=== PATIENT | male | born 1950 | race Caucasian/White ===

== ENCOUNTER 2018-02-22 16:47 | Observation (INO) ==
[2018-02-22] MEDS ORDERED: Naloxone 0.4 MG/ML INJ IVP PRN (18:10)
[2018-02-22 19:07] LABS: INR 2.7
[2018-02-22] MEDS: Acetaminophen 325 MG TABLET PO PRN (22:19)
[2018-02-23] MEDS ORDERED: *HR* Phytonadione 10 MG/ML AMPUL SQ ONE ×2 (07:50→18:29)
[2018-02-23] MEDS ORDERED: TRAZODONE HCL 150 MG PO SCH (11:15)
[2018-02-23] MEDS ORDERED: [UNRECOGNIZED DRUG - OTHER] PO SCH (11:15)
[2018-02-23] MEDS ORDERED: CHLORTHALIDONE PO SCH (11:15)
[2018-02-23] MEDS ORDERED: ATENOLOL PO SCH (11:15)
--- NOTE | 2018-02-23 11:28 | General Surg History&Physical ---
Date of Encounter: 02/23/18 Time of Encounter: 11:24 Assessment and Plan (1) Contusion of left lower extremity Current Visit: Yes Status: Acute 68M with anticoagulation now with LLE wound and hematoma; diet as tolerated reverse anticoagulation (vit K, FFP) activity as tolerated will plan for OR for debridement once INR is appropriate The assessment and plan as outlined above was discussed with the patient and/or family members who expressed understanding and agreement. All questions were answered. Qualifiers: Encounter type: initial encounter Qualified Code(s): S80.12XA - Contusion of left lower leg, initial encounter (2) Hematoma Current Visit: No Status: Acute see above will plan for US of LLE The assessment and plan as outlined above was discussed with the patient and/or family members who expressed understanding and agreement. All questions were answered. History of Present Illness Chief complaint: LLE wound HPI: Mr. Romero is a 68 year old male h/o valve replacement on coumadin who is s/p traumatic injury from encounter with a dog with subsequent injury to his LLE; The wound is tender to palpation and likely with underlying hematoma. He was evaluated in wound clinic and admitted for further evaluation; Past Med Surg Social Fam HX - Past Medical History Medical history: arthritis, hyperlipidemia, hypertension, valvular heart disease Additional medical history: arthritis in bilateral knees, enlarged prostate Psychiatric history: anxiety, depression - Past Surgical History Surgical History: other Additional surgical history: Mechanical mitral valve, total shoulder reversal - Social History Smoking Status: Former smoker Smokeless Tobacco Status: No Alcohol use: none Drug use: none - Family History Mother Adopted: No Living Status: Hx Family Cardiac Disorders: No Hx Family Respiratory Disorders: No Hx Family Cancer: Yes (colon) Hx Family GI Disorders: No Hx Family Endocrine Disorder: No Hx Family Neuromuscular Disorders: No Hx Family Neurologic Disorders: No Hx Family HEENT Disorders: No Hx Family Autoimmune Disorders: No Father Adopted: No Living Status: Hx Family Cardiac Disorders: No Hx Family Respiratory Disorders: Yes Hx Family Cancer: No Hx Family GI Disorders: No Hx Family Endocrine Disorder: No Hx Family Neuromuscular Disorders: No Hx Family Neurologic Disorders: No Hx Family HEENT Disorders: No Hx Family Autoimmune Disorders: No Medications and Allergies Atorvastatin [Lipitor] 40 mg PO HS 02/22/18 [History] Buspirone HCl [Buspar] 60 mg PO DAILY 02/22/18 [History] Escitalopram [Lexapro] 20 mg PO DAILY 02/22/18 [History] Omeprazole [PriLOSEC] 40 mg PO DAILY 02/22/18 [History] Trazodone HCl 150 mg PO DAILY 02/22/18 [History] Warfarin [Coumadin] 5 mg PO SUMOTUTHFRSA 02/22/18 [History] Atenolol/Chlorthalidone [Tenoretic 50 Tablet] 1 tab PO DAILY 02/23/18 [History] Oxybutynin [Ditropan] 5 mg PO BID 02/23/18 [History] Warfarin [Coumadin] 7.5 mg PO WE 02/23/18 [History] 3 Allergy/AdvReac Type Severity Reaction Status Date / Time venom-honey bee Allergy Difficulty Verified 06/08/17 13:20 [bee venom (honey bee)] Breathing Review of Systems All systems PM: The remainder of the systems were reviewed and are negative General Surgery Exam Initial Vital Signs Temp Pulse Resp BP Pulse Ox 97.7 F 65 16 152/84 96 02/22/18 19:34 02/22/18 19:34 02/22/18 19:34 02/22/18 19:34 02/22/18 19:34 - General physical appearance no distress - Eyes normal ocular movement - ENT normocephalic - Neck no lymphadectomy - Respiratory normal expansion, normal respiratory effort - Cardiovascular Cardiovascular exam: Present: RRR - Abdomen Abdomen general surgery: Present: soft, non tender - Integumentary Integumentary general surgery: Present: other (small wound ~ 4cm in size with likely hematoma below the skin; TTP; no purulent drainage) - Neurologic Present: CN 2-12 grossly intact - Musculoskeletal Present: normal gait, normal posture - Psychiatric Psychiatric general surgery: Present: A&Ox3 Results - Labs Abnormal lab results PT 30.0 Seconds (9.4-12.1) H 02/22/18 18:30 All other labs normal.
[2018-02-23] MEDS: Acetaminophen 325 MG TABLET PO PRN (13:13)
[2018-02-23] MEDS ORDERED: 0.9 % Sodium Chloride 250 ML ONE (13:43)
[2018-02-23 18:06] LABS: INR 1.7; Prothrombin Time 19.7 Seconds (9.4-12.1)
[2018-02-23] MEDS ORDERED: *HR* Heparin 5,000 UNIT/ML VIAL IVP PRN ×2 (18:32)
[2018-02-23] MEDS ORDERED: Heparin 25,000 UNIT/500 ML D5W 25,000 UNIT/500 ML BAG IVC SCH (18:45)
[2018-02-23] MEDS ORDERED: traZODone 50 MG TABLET PO SCH (21:00)
[2018-02-23] MEDS: 0.9 % Sodium Chloride 1,000 ML IVC SCH (23:39)
--- NOTE | 2018-02-24 08:11 | Anesthesia Evaluation PreOp ---
Date of Encounter: 02/24/18 Time of Encounter: 08:15 - Past History Planned Operation: Incision Drainage LLE Cardiac History: HTN, Hyperlipidemia, Cardiac Surgery (Valve Replacement) Pulmonary History: Denies Any Significant HX SODIUM METHYLATE OPERATOR History: Denies Any Significant HX Other Medical History: Denies Any Significant HX Anesthesia History: No Prior Anesthetic Complications, Past Anesthesia ( Shoulder Surgery) Alcohol Use: none Drug use: none Medications and Allergies Atorvastatin [Lipitor] 40 mg PO HS 02/22/18 [History] Buspirone HCl [Buspar] 60 mg PO DAILY 02/22/18 [History] Escitalopram [Lexapro] 20 mg PO DAILY 02/22/18 [History] Omeprazole [PriLOSEC] 40 mg PO DAILY 02/22/18 [History] Trazodone HCl 150 mg PO DAILY 02/22/18 [History] Warfarin [Coumadin] 5 mg PO SUMOTUTHFRSA 02/22/18 [History] Atenolol/Chlorthalidone [Tenoretic 50 Tablet] 1 tab PO DAILY 02/23/18 [History] Oxybutynin [Ditropan] 5 mg PO BID 02/23/18 [History] Warfarin [Coumadin] 7.5 mg PO WE 02/23/18 [History] 3 Allergy/AdvReac Type Severity Reaction Status Date / Time Hydromorphone [From Dilaudid] Allergy Hallucinati Verified 02/23/18 23:30 ng venom-honey bee Allergy Difficulty Verified 06/08/17 13:20 [bee venom (honey bee)] Breathing - Meds/Allergy Pre-op Review Medications Reviewed: Yes Allergies Reviewed: Yes Beta Blockers on Current Med List: Yes (Atenolol 8-5 am) Anesthesia Results - Labs Laboratory Tests 06/08/17 02/19/18 02/23/18 13:28 18:08 17:47 Hgb 13.1 Hct 37.9 Plt Count 154 PT 19.7 H INR 1.7 Sodium 141 Potassium 3.3 L BUN 24 Creatinine 0.91 - Imaging EKG: report reviewed (AFib) Anesthesia Exam Vital Signs/O2 Sat/Glucose, Most Current Temp Pulse Resp BP Pulse Ox 02/24/18 06:36 97.8 F 74 15 115/72 97 Height: 5'11 Weight: 216 lbs NPO (# of Hours): MN Pain Scale: 0 - HEENT Pupil (Motor): Pupils equal, EOMI Oral Opening: Greater than 3 - SODIUM METHYLATE OPERATOR LOC: Oriented SODIUM METHYLATE OPERATOR Motor: Normal RUE, Normal LUE, Normal RLE, Normal LLE, Normal Face SODIUM METHYLATE OPERATOR Sensory: Normal: RUE, LUE, RLE, LLE, Face - Cardiac Rhythm: Regular Murmur: None JVD: No Carotid Bruit: No - Pulmonary Breath Sounds: bilateral Clear Respiratory Effort: Symmetrical Anesthesia Assess/Plan ASA Score: 3 (HTN Open Heart Surgery) Modified [place] Scale for Level of Consciousness: Cooperative, oriented, and tranquil Anesthetic Plan: General Monitoring Plan: Standard Monitors Recovery Plan: PACU (Discussed GA, agrees to proceed)
[2018-02-24] MEDS ORDERED: Lidocaine -MPF 2% 2 ML VIAL ONE (08:31)
[2018-02-24] MEDS ORDERED: *HR* FentaNYL (PF) 100 MCG/2 ML VIAL ONE (08:31)
[2018-02-24] MEDS ORDERED: *HR* Midazolam HCl 2 MG/2 ML VIAL ONE (08:31)
[2018-02-24] MEDS ORDERED: *HR* Propofol 200 MG/20 ML VIAL IVP ONE (08:31)
[2018-02-24] MEDS ORDERED: Dexamethasone 4 MG/ML VIAL ONE (08:36)
[2018-02-24] MEDS ORDERED: Ondansetron 4 MG/2 ML VIAL ONE (08:36)
[2018-02-24] MEDS ORDERED: Acetaminophen IV 1,000 MG/100 ML INFUS..BTL ONE (09:00)
[2018-02-24] MEDS ORDERED: Famotidine 20 MG/2 ML VIAL ONE (09:00)
[2018-02-24] MEDS ORDERED: KETAMINE HCL 50 MG/ML SYRINGE IV ONE (09:06)
[2018-02-24] MEDS ORDERED: Clindamycin 600 MG/50 ML 600 MG/50 ML IV.SOLN IVPB ONE (09:24)
[2018-02-24] MEDS ORDERED: Vancomycin 1,000 MG VIAL ONE (09:29)
[2018-02-24] MEDS ORDERED: *HR* Promethazine 25 MG/ML VIAL IVP PRN (09:42)
[2018-02-24] MEDS ORDERED: *HR* OxyCODONE Immed Rel 5 MG TABLET PO PRN (09:42)
--- NOTE | 2018-02-24 10:18 | Anesthesia Evaluation Post Op ---
Date of Encounter: 02/24/18 Time of Encounter: 10:20 - Vital Signs Vital Signs: Vital Signs/O2 Sat/Glucose, Most Current Temp Pulse Resp BP Pulse Ox 02/24/18 10:10 55 14 134/60 98 02/24/18 10:00 97 F L 64 12 138/85 91 02/24/18 06:36 97.8 F 74 15 115/72 97 - Lungs Lungs: Clear Ascult./Percussion - Airway Airway: Non-obstructed - Cardiovascular Regular Rate - Mental Status Mental Status: Alert & Oriented, Answers Appropriately - Pain Pain Scale: 0 - Nausea Vomiting Nausea Vomiting: Not Present - Hydration Hydration: Ice chips - Discharge PostOp Status: Transfer Patient to floor
[2018-02-24] MEDS: 0.9 % Sodium Chloride 1,000 ML IVC SCH (11:09)
[2018-02-24] MEDS ORDERED: 0.9 % Sodium Chloride 1,000 ML IVC SCH (12:54)
[2018-02-24] MEDS ORDERED: Acetaminophen 325 MG TABLET PO PRN (12:54)
[2018-02-24] MEDS ORDERED: *HR* Heparin 5,000 UNIT/ML VIAL IVP PRN ×2 (12:54)
[2018-02-24] MEDS ORDERED: Naloxone 0.4 MG/ML INJ IVP PRN (12:54)
[2018-02-24] MEDS: Heparin 25,000 UNIT/500 ML D5W 25,000 UNIT/500 ML BAG IVC SCH (13:55)
[2018-02-24] MEDS: *HR* Warfarin 5 MG TABLET PO SCH (18:09)
[2018-02-24] MEDS: traZODone 50 MG TABLET PO SCH (21:33)
[2018-02-25 05:09] LABS: INR 1.2; Prothrombin Time 13.3 Seconds (9.4-12.1)
[2018-02-25 05:11] LABS: Heparin anti-factor XA UFH 1.13 IU/mL (0.30-0.70)
--- NOTE | 2018-02-25 08:53 | General Surgery Progress Note ---
<TobiOpal Hare - Last Filed: 02/25/18 10:46> Date of Encounter: 02/25/18 Time of Encounter: 08:53 - Assessment and Plan (1) Hematoma Current Visit: Yes Status: Acute Date of procedure: 02/24/18 Pre-op diagnosis: left lower extremity wound Post-op diagnosis: same Procedure: exicisional debridement of left lower extremity wound Implants: none Complications: none Anesthesia: GETA Local Anesthetics: 0.5% Sensorcaine HCL SubQ (cc) Surgeon: Davis Dawson POD#1 as above after Pt suffered trauma when tripping over his dog. He is doing well postoperatively. He reports his discomfort is not controlled. Left lower extremity is with a postoperative wound measuring 8 cm(L) x 8cm (W), by 4 cm (D ) and with undermining 7 to 10 o'clock position. The margins are free from evidence of cellulitis. The wound beds are beefy red. There is surrounding ecchymosis. Drainage is bloody. A wound VAC is applied using white foam in the undermining and black foam in the wound bed. There is an area of abrasion at the 2-4 o'clock position and a non adherent dressing was placed prior to the placement of the [place] draping. Suction was placed at 125 mmHgb and there was no leak present. Plan: Wound vac therapy Q m/w/f: White foam to undermining. Black foam in the wound bed. Nonadherent dressing to the abrasion area (2-4 o'clock position) Continue suction to 125 mmHgb. [facility] for wound vac changes to begin on 02/27/2018. 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 Objective Vital Signs - Last 8 Hours Temp Pulse Resp BP Pulse Ox 02/25/18 07:04 98.3 F 76 14 124/74 94 02/25/18 04:39 97.9 F 74 14 98/78 93 Intake and Output 02/24/18 02/25/18 02/25/18 23:59 07:59 15:59 Intake Total 1453 / 1453 420 / 420 Output Total 400 / 400 650 / 650 100 / 100 Balance 1053 / 1053 -230 / -230 -100 / -100 Intake: IV Fluids 1213 / 1213 220 / 220 0.9 % Sodium Chloride 1,000 ML 1000 / 1000 @ 125 mls/hr IVC .Q8H ANNA Rx#: [id number] Heparin 25,000 UNIT/500 ML D5W 213 / 213 220 / 220 25,000 unit In 500 ml @ 14 UNIT /KG/HR 27.433 mls/hr IVC . [id number] ANNA Rx#:[id number] Oral 240 / 240 200 / 200 Output: Urine 400 / 400 650 / 650 100 / 100 Other: Meal Dinner Percent of Meal Consumed 85% # Bowel Movements 0 Weight 98.4 kg Patient Weight 02/25/18 23:59 Weight 98.4 kg VITAL SIGNS: Reviewed. See [facility] GENERAL: In no apparent distress. HEENT: Normocephalic, atraumatic, pupils are equal and reactive, extraocular motions intact, oropharynx is pink and moist, there is no neck adenopathy or JVD noted. CHEST/RESPIRATORY: The thorax is free from signs of trauma. Lung sounds: clear to auscultation, normal respiratory effort CARDIAC: Regular rate and rhythm. Mechanical heart sounds VASCULAR: No Edema. 2+ peripheral pulses. Left lower extremity is with a postoperative wound measuring 8 cm(L) x 8cm (W), by 4 cm (D) and with undermining 7 to 10 o'clock position. The margins are free from evidence of cellulitis. The wound beds are beefy red. There is surrounding ecchymosis. Drainage is bloody. A wound VAC is applied using white foam in the undermining and black foam in the wound bed. There is an area of abrasion at the 2-4 o' clock position and a non adherent dressing was placed prior to the placement of the WV draping. Suction was placed at 125 mmHgb and there was no leak present. ABDOMEN: soft, nontender, active bowel sounds MUSCULOSKELETAL: Good range of motion of all major joints. Extremities without clubbing, cyanosis or edema. NEUROLOGIC EXAM: Alert and oriented x 3. Speech normal. Follows commands. PSYCHIATRIC: Mood normal. SKIN: No rash or lesions except ecchymosis as described. - VTE Documentation of Mechanical Device: Graduated compression elastic hosiery Consult Discharge Plan - Plan Referrals: Kel Garcia MD [Primary Care Provider] - Prescriptions: Enoxaparin [Lovenox] 100 mg SQ Q12HR 30 Days #60 syr <Davis Dawson - Last Filed: 02/26/18 08:06> Date of Encounter: 02/26/18 - Assessment and Plan (1) Contusion of left lower extremity Current Visit: Yes Status: Acute Qualifiers: Encounter type: initial encounter Qualified Code(s): S80.12XA - Contusion of left lower leg, initial encounter (2) Hematoma Current Visit: Yes Status: Acute Objective Vital Signs - Last 8 Hours Temp Pulse Resp BP Pulse Ox 02/26/18 07:07 98.4 F 68 17 113/74 93 02/26/18 04:11 97.9 F 70 16 134/75 94 Intake and Output 02/25/18 02/26/18 02/26/18 23:59 07:59 15:59 Intake Total 1303 / 1303 200 / 200 Output Total 475 / 475 1225 / 1225 Balance 828 / 828 -1025 / -1025 Intake: IV Fluids 1063 / 1063 Heparin 25,000 UNIT/500 ML D5W 63 / 63 25,000 unit In 500 ml @ 14 UNIT /KG/HR 27.433 mls/hr IVC . [id number] ANNA Rx#:[id number] Oral 240 / 240 200 / 200 Output: Urine 425 / 425 1175 / 1175 Wound Drainage 50 / 50 50 / 50 Left Lower Medial Leg 50 / 50 50 / 50 Other: Meal Dinner Percent of Meal Consumed 20% # Bowel Movements 0 Weight 98.1 kg Patient Weight 02/26/18 23:59 Weight 98.1 kg - Labs 02/26/18 06:54 02/26/18 06:54 Diabetes panel 02/26/18 Range/Units 06:54 Sodium 141 (136-145) mEq/L Potassium 3.2 L (3.5-5.1) mEq/L Chloride 104 (98-107) mEq/L Carbon Dioxide 32 H (23-29) mEq/L BUN 13 (8-23) mg/dL Creatinine 0.94 (0.70-1.30) mg/dL Glucose 123 H (70-105) mg/dL Calcium 8.8 (8.6-10.3) mg/dL Calcium panel 02/26/18 Range/Units 06:54 Calcium 8.8 (8.6-10.3) mg/dL Pituitary panel 02/26/18 Range/Units 06:54 Sodium 141 (136-145) mEq/L Potassium 3.2 L (3.5-5.1) mEq/L Chloride 104 (98-107) mEq/L Carbon Dioxide 32 H (23-29) mEq/L BUN 13 (8-23) mg/dL Creatinine 0.94 (0.70-1.30) mg/dL Glucose 123 H (70-105) mg/dL Calcium 8.8 (8.6-10.3) mg/dL Adrenal panel 02/26/18 Range/Units 06:54 Sodium 141 (136-145) mEq/L Potassium 3.2 L (3.5-5.1) mEq/L Chloride 104 (98-107) mEq/L Carbon Dioxide 32 H (23-29) mEq/L BUN 13 (8-23) mg/dL Creatinine 0.94 (0.70-1.30) mg/dL Glucose 123 H (70-105) mg/dL Calcium 8.8 (8.6-10.3) mg/dL - Attending Attestation patient seen and examined. i have reviewed all labs, imaging, and notes. i agree with the above assessment and plan
--- NOTE | 2018-02-25 09:13 | Operative Note ---
Date of procedure: 02/24/18 Pre-op diagnosis: left lower extremity wound Post-op diagnosis: same Procedure: exicisional debridement of left lower extremity wound Implants: none Complications: none Anesthesia: GETA Local Anesthetics: 0.5% Sensorcaine HCL SubQ (cc) Surgeon: Davis Dawson Was there an bilingual medical assistant present: No Estimated blood loss (cc): 5 Specimen: none Condition: stable Disposition: PACU Procedure in Detail: The patient was brought into the operating room suite. The patient was placed in the supine position. Mechanical DVT prophylaxis was initiated. The patient underwent smooth induction of general endotracheal anesthesia. The patient was prepped and draped in the usual fashion. Preoperative antibiotics were given. A timeout was held identifying the correct patient, pathology, and procedure. Everyone was in agreement and we began a procedure. I started by excising the eschar and then evacuating the hematoma that was contained within the soft tissue. i then began excising all non viable, necrotic tisuse. I dissected down the fascia layer, but did not violate the fascia. the wound measured 8.5cm x 6cm x 2xm. I used electrocautery to control for hemostasis. I then irrigated the wound and dressed it with a wet to dry dressing. The patient tolerated the procedure well and was escorted to pacu in stable condition
--- NOTE | 2018-02-25 09:14 | Electrocardiograph Report ---
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
[2018-02-25] MEDS ORDERED: OXYCODONE Oral CONC 10 MG/0.5 ML ORAL.SYG SL PRN (09:46)
[2018-02-25] MEDS ORDERED: Ondansetron ODT 4 MG TAB.RAPDIS SL PRN (09:49)
[2018-02-25] MEDS: *HR* OxyCODONE/APAP 5/325 TABLET PO PRN ×2 (10:59→20:13)
[2018-02-25] MEDS: Heparin 25,000 UNIT/500 ML D5W 25,000 UNIT/500 ML BAG IVC SCH (12:10)
--- NOTE | 2018-02-25 12:54 | Event Note ---
Date of Encounter: 02/25/18 Time of Encounter: 12:52 Pt's insurance has denied Lovenox BID. I did submit a prior auth request to them (#[id number]) to [facility] pharmacy [phone]. If [facility] does not cover the twice daily Lovenox, he may need [place] coverage for the second daily dose. Reviewed with LIZBETH.
[2018-02-25] MEDS: *HR* Enoxaparin 100 MG/ML SYRINGE SQ SCH (17:40)
[2018-02-25] MEDS: *HR* Warfarin 5 MG TABLET PO SCH (17:40)
[2018-02-25] MEDS: traZODone 50 MG TABLET PO SCH (20:11)
[2018-02-26] MEDS: *HR* Enoxaparin 100 MG/ML SYRINGE SQ SCH (05:38)
[2018-02-26 07:12] VITALS: BP 113/74
[2018-02-26 07:12] LABS: Basophils % 0.7 %; Eosinophils # 0.2 K/mcL (0.0-0.6); Eosinophils % 4.2 %; Hematocrit 34.2 % (37.5-50.1); Hemoglobin 11.7 g/dL (12.9-16.9); Immature Granulocytes % 0.4 % (0-4); Lymphocytes # 0.7 K/mcL (0.6-4.6); Lymphocytes % 12.9 %; Mean Corpuscular HGB Conc 34.2 g/dL (31.6-35.5); Mean Corpuscular Hemoglobin 30.4 pg (28.0-33.3); Mean Corpuscular Volume 88.8 fL (83.0-100.0); Mean Platelet Volume 9.5 fL (9.4-12.4); Monocytes # 0.4 K/mcL (0.0-1.3); Monocytes % 7.5 %; Neutrophils # 4.1 K/mcL (1.6-8.9); Platelet Count 138 K/mcL (140-400); Red Blood Count 3.85 M/mcL (4.19-5.50); Red Cell Distribution Width 15.1 % (11.5-14.5); Segmented Neutrophils % 74.3 %
[2018-02-26 07:25] LABS: BUN/Creatinine Ratio 14 (6-26); Blood Urea Nitrogen 13 mg/dL (8-23); Calcium 8.8 mg/dL (8.6-10.3); Carbon Dioxide 32 mEq/L (23-29); Chloride 104 mEq/L (98-107); Glucose 123 mg/dL (70-105); Osmolality,Calculated 293 (280-300); Potassium 3.2 mEq/L (3.5-5.1); Sodium 141 mEq/L (136-145); eGFR For Non-African Americans > 60 (> 60)
[2018-02-26 07:28] LABS: INR 1.2; Prothrombin Time 13.1 Seconds (9.4-12.1)
--- NOTE | 2018-02-26 09:55 | Discharge Summary ---
- NOTES TO OUTPATIENT PROVIDER Notes to Outpatient Provider: Patient is with sub therapeutic INR. He will be sent home with Lovenox bridging. Take 7.5 mg warfarin on Sunday, Sunday, and . Date of Encounter: 02/26/18 Time of Encounter: 10:02 - Discharge Diagnosis (1) Hematoma Priority: Primary Status: Acute (2) H/O mitral valve replacement with mechanical valve Priority: Secondary Status: Acute (3) Chronic anticoagulation Priority: Secondary Status: Acute General Surgery Exam Initial Vital Signs Temp Pulse Resp BP Pulse Ox 97.7 F 65 16 152/84 96 02/22/18 19:34 02/22/18 19:34 02/22/18 19:34 02/22/18 19:34 02/22/18 19:34 Vital Signs Temp Pulse Resp BP Pulse Ox 02/26/18 07:07 98.4 F 68 17 113/74 93 02/26/18 04:11 97.9 F 70 16 134/75 94 02/25/18 23:41 97.5 F L 64 15 147/84 96 02/25/18 19:12 97.9 F 64 16 113/64 94 02/25/18 16:34 98.2 F 63 16 107/66 93 02/25/18 11:23 98.4 F 65 16 107/67 96 Intake and Output 02/25/18 02/26/18 02/26/18 23:59 07:59 15:59 Intake Total 1303 / 1303 200 / 200 Output Total 475 / 475 1225 / 1225 200 / 200 Balance 828 / 828 -1025 / -1025 -200 / -200 Intake: IV Fluids 1063 / 1063 Heparin 25,000 UNIT/500 ML D5W 63 / 63 25,000 unit In 500 ml @ 14 UNIT /KG/HR 27.433 mls/hr IVC . [id number] [facility] Rx#:[id number] Oral 240 / 240 200 / 200 Output: Urine 425 / 425 1175 / 1175 200 / 200 Wound Drainage 50 / 50 50 / 50 Left Lower Medial Leg 50 / 50 50 / 50 Other: Meal Dinner Percent of Meal Consumed 20% # Bowel Movements 0 Weight 98.1 kg Patient Weight 02/26/18 23:59 Weight 98.1 kg - General physical appearance no distress, moderate pain - Neck trachea midline - Respiratory normal expansion, normal respiratory effort, clear to auscultation - Cardiovascular Cardiovascular exam: Present: RRR, distant heart sounds - Abdomen Abdomen general surgery: Present: bowel sounds present, soft, non tender - Integumentary Integumentary general surgery: Present: warm and dry, other (Left lower extremity wound VAC in place. No leak noted) - Neurologic Present: CN 2-12 grossly intact, normal coordination, normal sensation - Musculoskeletal Present: normal gait, normal posture - Psychiatric Psychiatric general surgery: Present: A&Ox3, appropriate, oriented to person, oriented to place, oriented to time, speech is normal, memory intact - Hospital Course Hospital course: Mr. Romero is a 68 year old male who presented on 02/23/2018 for an elective left lower extremity hematoma evacuation status post trauma in January. He was given vitamin K and FFP for INR reversal prior to surgical intervention. He was taken to the operating room on 02/24/2018 where he underwent an excisional debridement of left lower extremity wound, by Dr. Dawson, with notable measurements of 8.5 x 6 x 2 cm. Hemostasis was achieved. On 02/25/2018 he wound VAC was applied to the area. Measurements at the time of the wound VAC: 8 cm(L ) x 8cm (W), by 4 cm (D) and with undermining 7 to 10 o'clock position (medial) White foam was placed In the undermining area, black foam was placed in the wound bed and a non-adherent dressing was placed to the area of abrasion on the lateral side side. He is S/P mechanical mitral valve and is on warfarin therapy. He will be discharged to home with a Lovenox bridge for subtherapeutic INR (100 g SQ BID until INR is 2.5-3.5). Take 7.5 mg warfarin / and call his coumadin clinic if INR is not therapeutic Sunday. He is VSS, discomfort is controlled, and wound vac is functioning as expected. We will begin d/c planning ot home with home health and a follow-up in wound care with Dr. Dawson in 7-14 days. - Time Spent with Patient Total time spent providing and/or coordinating discharge services: - Discharge Medications Prescriptions: Ondansetron ODT [Zofran ODT] 4 mg SL Q4HR PRN #30 tab.rapdis PRN Reason: Nausea Enoxaparin [Lovenox] 100 mg SQ Q12HR 30 Days #60 syr Docusate Sodium [Colace] 100 mg PO BID #60 capsule Oxycodone HCl/Acetaminophen [Percocet 5-325 mg Tablet] 1 each PO Q6H PRN 7 Days #28 tablet PRN Reason: Pain Home Medications: Atorvastatin [Lipitor] 40 mg PO HS 02/22/18 [History] Buspirone HCl [Buspar] 60 mg PO DAILY 02/22/18 [History] Escitalopram [Lexapro] 20 mg PO DAILY 02/22/18 [History] Omeprazole [PriLOSEC] 40 mg PO DAILY 02/22/18 [History] Trazodone HCl 150 mg PO DAILY 02/22/18 [History] Warfarin [Coumadin] 5 mg PO SUMOTUTHFRSA 02/22/18 [History] Atenolol/Chlorthalidone [Tenoretic 50 Tablet] 1 tab PO DAILY 02/23/18 [History] Oxybutynin [Ditropan] 5 mg PO BID 02/23/18 [History] Warfarin [Coumadin] 7.5 mg PO WE 02/23/18 [History] Enoxaparin [Lovenox] 100 mg SQ Q12HR 30 Days #60 syr 02/25/18 [Rx] Docusate Sodium [Colace] 100 mg PO BID #60 capsule 02/26/18 [Rx] Ondansetron ODT [Zofran ODT] 4 mg SL Q4HR PRN #30 tab.rapdis 02/26/18 [Rx] Oxycodone HCl/Acetaminophen [Percocet 5-325 mg Tablet] 1 each PO Q6H PRN 7 Days #28 tablet 02/26/18 [Rx] Allergies/Adverse Reactions: 3 Allergy/AdvReac Type Severity Reaction Status Date / Time Hydromorphone [From Dilaudid] Allergy Hallucinati Verified 02/23/18 23:30 ng venom-honey bee Allergy Difficulty Verified 06/08/17 13:20 [bee venom (honey bee)] Breathing Date of admission: 02/22/18 16:56 Primary care physician: Kel Garcia MD Consults: 02/25/18 09:42 Consult to Care Director [CONS] Routine Reason for SW Consult: HHC set up for Wound vac changes and Lovenox bridging. Anticipate d/c when [place], and Medication in place 02/25/18 11:17 Consult for Pharmacy Education [CONS] Routine Reason for Consult: Lovenox Bridging and coumadin dosing Time Notified: 11:17 Call Completed: Yes Discharging clinician: Davis Dawson (Lisa Britton) Anticipated date of discharge: 02/26/18 Labs on day of discharge: Labs from last 24 hours 02/26/18 02/26/18 02/26/18 06:54 06:54 06:54 WBC 5.5 RBC 3.85 L Hgb 11.7 L Hct 34.2 L MCV 88.8 MCH 30.4 MCHC 34.2 RDW 15.1 H Plt Count 138 L MPV 9.5 Immature Gran % 0.4 Seg Neutrophils % 74.3 Lymphocytes % 12.9 Monocytes % 7.5 Eosinophils % 4.2 Basophils % 0.7 Neutrophils # 4.1 Lymphocytes # 0.7 Monocytes # 0.4 Eosinophils # 0.2 Basophils # 0.0 PT 13.1 H INR 1.2 Heparin Anti-Xa, Unfract Sodium 141 Potassium 3.2 L Chloride 104 Carbon Dioxide 32 H BUN 13 Creatinine 0.94 Est GFR ( Amer) > 60 Est GFR (Non-Af Amer) > 60 BUN/Creatinine Ratio 14 Glucose 123 H Calculated Osmolality 293 Calcium 8.8 02/25/18 12:00 WBC RBC Hgb Hct MCV MCH MCHC RDW Plt Count MPV Immature Gran % Seg Neutrophils % Lymphocytes % Monocytes % Eosinophils % Basophils % Neutrophils # Lymphocytes # Monocytes # Eosinophils # Basophils # PT INR Heparin Anti-Xa, Unfract 0.71 H Sodium Potassium Chloride Carbon Dioxide BUN Creatinine Est GFR ( Amer) Est GFR (Non-Af Amer) BUN/Creatinine Ratio Glucose Calculated Osmolality Calcium - Impressions ITS Impressions Extremity Ultrasound 02/23/18 14:00 IMPRESSION: 1. No evidence of abscess or hematoma. 2. Soft tissue edema. D/ / 02/23/2018 15:29:46 Clare Xavier MD / [facility] Interpreting Provider: Clare Xavire MD - Patient Status Disposition: Home Health Service Condition: Good Functional capacity at discharge: independent ambulation Overall status at discharge: patient is progressing back to baseline - Discharge Instructions Follow Up With: WoundCare,Clinic [Other] - 03/05/18 10:00 am (This appointment will be with Dr. Dawson.) Additional Instructions: General Surgical Discharge Instructions 1. No pushing, pulling, or lifting greater than 15 lbs for until directed. 2. You may shower beginning today, but you will need to refrain from a shower for 24 hours after a new wound VAC dressing as applied. 3. You may resume driving when you are off narcotics and are safe to react in a car. 4. Take Percocet if needed for discomfort. Take the Percocet approximately one hour prior to arrival of home health for dressing changes. 5. Take stool softeners (Colace) or a water based laxative (Miralax) while taking narcotics. You may hold for loose stools. 6. Report any fevers greater than 100.5F, increase abdominal discomfort, drainage that looks like pus, increased redness or pain at the surgical site, or any vomiting. 7. Report any pain in the calves, shortness of breath, or rapid heartbeat. 8. Follow-up in wound care with Dr. Dawson in approximately 2 weeks 9. If you were prescribed antibiotics, do not stop them without talking to your provider. 10. TAKE LOVENOX 100 MG SUBCUTANEUOUSLY TWICE DAILY UNTIL inr IS 2.5-3.5 OR DIRECTED BY YOUR MANAGER GARDEN. Take warfarin as directed (7.5 mg Sunday, Sunday, and ), call your coumadin clinic for further recommendations on Sunday. Call your filenet p8 developer for a follow-up appointment - Diet and Activity Activity: increase activity as tolerated Diet: advance to your usual diet
--- NOTE | 2018-02-26 10:14 | Physician Discharge Referral ---
Home Health/Hosp Referral Info Transfer to: Home Health Attending Provider: Dr. Davis Dawson Provider in Charge Post Discharge: Other (Dr. Davis Dawson) - Diagnosis (1) Hematoma Priority: Primary Status: Acute (2) H/O mitral valve replacement with mechanical valve Priority: Secondary Status: Acute (3) Chronic anticoagulation Priority: Secondary Status: Acute - Respiratory Orders Smoking Cessation: Smoking cessation has been advised. For more information, call the [employer] Quit Line at 9-223-RTTZ-NOW. - Dressing/Wound Care Site: Left lower extremity Type of Dressing/Treatments w/Frequency: Wound Vac Changes: Every M/W/F beginning 02/27/2018. White foam to the undermining (medial side) 7-10 o'clock. Black foam to the wound bed. Non- adherent dressing to the to cover the abrasion area (lateral side 2-4 o'clock). Maintain 125 mmhgb suction. - Diet/Nutrition Diet/Nutrition Orders: Regular - Activity Activity Orders: Up ad jhony - Services Needed Following services are medically necessary services: [facility] Care Orders: General Surgical Discharge Instructions 1. No pushing, pulling, or lifting greater than 15 lbs for until directed. 2. You may shower beginning today, but you will need to refrain from a shower for 24 hours after a new wound VAC dressing as applied. 3. You may resume driving when you are off narcotics and are safe to react in a car. 4. Take Percocet if needed for discomfort. Take the Percocet approximately one hour prior to arrival of home health for dressing changes. 5. Take stool softeners (Colace) or a water based laxative (Miralax) while taking narcotics. You may hold for loose stools. 6. Report any fevers greater than 100.5F, increase abdominal discomfort, drainage that looks like pus, increased redness or pain at the surgical site, or any vomiting. 7. Report any pain in the calves, shortness of breath, or rapid heartbeat. 8. Follow-up in wound care with Dr. Dawson in approximately 2 weeks 9. If you were prescribed antibiotics, do not stop them without talking to your provider. 10. TAKE LOVENOX 100 MG SUBCUTANEUOUSLY TWICE DAILY UNTIL inr IS 2.5-3.5 OR DIRECTED BY YOUR RAILROAD TRACK MECHANIC Wound vac orders as above - Transfer Medications Prescriptions: Ondansetron ODT [Zofran ODT] 4 mg SL Q4HR PRN #30 tab.rapdis PRN Reason: Nausea Enoxaparin [Lovenox] 100 mg SQ Q12HR 30 Days #60 syr Docusate Sodium [Colace] 100 mg PO BID #60 capsule Oxycodone HCl/Acetaminophen [Percocet 5-325 mg Tablet] 1 each PO Q6H PRN 7 Days #28 tablet PRN Reason: Pain Home Medications: Atorvastatin [Lipitor] 40 mg PO HS 02/22/18 [History] Buspirone HCl [Buspar] 60 mg PO DAILY 02/22/18 [History] Escitalopram [Lexapro] 20 mg PO DAILY 02/22/18 [History] Omeprazole [PriLOSEC] 40 mg PO DAILY 02/22/18 [History] Trazodone HCl 150 mg PO DAILY 02/22/18 [History] Warfarin [Coumadin] 5 mg PO SUMOTUTHFRSA 02/22/18 [History] Atenolol/Chlorthalidone [Tenoretic 50 Tablet] 1 tab PO DAILY 02/23/18 [History] Oxybutynin [Ditropan] 5 mg PO BID 02/23/18 [History] Warfarin [Coumadin] 7.5 mg PO WE 02/23/18 [History] Enoxaparin [Lovenox] 100 mg SQ Q12HR 30 Days #60 syr 02/25/18 [Rx] Docusate Sodium [Colace] 100 mg PO BID #60 capsule 02/26/18 [Rx] Ondansetron ODT [Zofran ODT] 4 mg SL Q4HR PRN #30 tab.rapdis 02/26/18 [Rx] Oxycodone HCl/Acetaminophen [Percocet 5-325 mg Tablet] 1 each PO Q6H PRN 7 Days #28 tablet 02/26/18 [Rx] Allergies/Adverse Reactions: 3 Allergy/AdvReac Type Severity Reaction Status Date / Time Hydromorphone [From Dilaudid] Allergy Hallucinati Verified 02/23/18 23:30 ng venom-honey bee Allergy Difficulty Verified 06/08/17 13:20 [bee venom (honey bee)] Breathing Certification: Further, I certify that my clinical findings support that this patient is homebound (i.e. absences from home require considerable and taxing effort and are for medical reasons or anabaptist services or infrequently or short duration when for other reasons) because: Homebound Reason: Post-surgery restriction and or conditions limit ability to leave home, Leaving home requires considerable and taxing effort due to condition Attestation: My signature below is to certify that this patient is under my care and that I, or nurse practitioner, or a physician's restaurant assistant working with me, has a face-to -face encounter with this patient.
[2018-02-27] MEDS ORDERED: *HR* Warfarin 7.5 MG TABLET PO SCH (18:00)
== END 2018-02-26 12:12 | disposition home health service (06) ==
LOC: 3ANU
PROVIDERS: ADMIT Surgery; ATTEND Surgery

== ENCOUNTER 2018-05-23 14:36 | Inpatient (IN) ==
--- NOTE | 2018-05-23 15:41 | Emergency Department Note ---
Disposition Clinical Impression: Altered level of consciousness, Unable to ambulate Closed head injury Qualifiers: Encounter type: initial encounter Qualified Code(s): S09.90XA - Unspecified injury of head, initial encounter Cervical strain Qualifiers: Encounter type: initial encounter Qualified Code(s): S16.1XXA - Strain of muscle, fascia and tendon at neck level, initial encounter Atrial fibrillation Qualifiers: Atrial fibrillation type: chronic Qualified Code(s): I48.2 - Chronic atrial fibrillation Anemia Qualifiers: Anemia type: unspecified type Qualified Code(s): D64.9 - Anemia, unspecified Disposition: Admitted As Inpatient Condition: Fair Referrals: Arnaldo De La Rosa MD [Primary Care Provider] - Forms: ED Satisfaction Letter Time of Disposition: 17:01 General Adult HPI - General Chief complaint: ED Fall Stated complaint: Fall Time Seen by Provider: 05/23/18 14:43 Source: patient, EMS Limitations: no limitations Nursing Notes Reviewed: Yes Vital Signs Reviewed: Yes - History of Present Illness HPI Narrative: Patient presents per EMS and the patient is here with his and the story is that he had knee surgery 3 days ago and fell on Sunday after losing his balance and the patient did very weak since that time, the thinks he may have a left-sided facial droop of his lips and his I and he has been laying on the bed and will not get up and do many activities. She is not able to continue to care for him with his difficulty breathing at home. He denies any localized numbness or weakness of the extremities, slurred speech, facial droop or confusion however the said he has had some intermittent confusion over the last several days.. The said that a previous surgery that occurred where he received Dilaudid and had been confused after that time also. He does have some lower neck pain. He also complains of right ankle pain. Does not have right knee pain. Social history: No smoking or alcohol Pain Scale: 6 - Related Data Home Medications Medication Instructions Recorded Confirmed Aspirin [Adult Aspirin Regimen] 81 mg PO DAILY 05/20/18 05/23/18 Atenolol [Tenormin] 50 mg PO DAILY 05/20/18 05/23/18 Atorvastatin [Lipitor] 40 mg PO DAILY 05/20/18 05/23/18 Buspirone HCl [Buspar] 60 mg PO DAILY 05/20/18 05/23/18 Chlorthalidone 12.5 mg PO DAILY 05/20/18 05/23/18 Escitalopram [Lexapro] 20 mg PO DAILY 05/20/18 05/23/18 Folic Acid 3 mg PO DAILY 05/20/18 05/23/18 Gabapentin [Neurontin] 300 mg PO BID 05/20/18 05/23/18 Omeprazole [PriLOSEC] 40 mg PO DAILY 05/20/18 05/23/18 Oxybutynin [Ditropan] 5 mg PO BID 05/20/18 05/23/18 Trazodone HCl 150 mg PO HS 05/20/18 05/23/18 Warfarin Sodium 5 mg PO SUTHSA 05/20/18 05/23/18 Warfarin Sodium 7.5 mg PO MOTUWEFR 05/20/18 05/23/18 HYDROcodone/Acet 5/325 mg [[place] 1 tab PO Q6H PRN 05/23/18 05/23/18 5-325 mg] Allergies Allergy/AdvReac Type Severity Reaction Status Date / Time Hydromorphone [From Dilaudid] Allergy Hallucinati Verified 05/20/18 08:03 ng venom-honey bee Allergy Difficulty Verified 05/20/18 08:03 [bee venom (honey bee)] Breathing Review of Systems: Constitutional: No fever Vision: No blurred vision ENT: No rhinorrhea Respiratory: No cough Allergic: No allergies : No blood in urine GI: No blood in stool Hematologic: No bruising Dermatologic: No skin rash Musculoskeletal: + pain in the extremities Neuro: No numbness of the extremities Past Medical History - Past Medical History Medical history: Reports: arthritis, GERD, hyperlipidemia, hypertension, valvular heart disease Surgical history: Reports: appendectomy, other Psychiatric history: Reports: anxiety, depression - Social History Smoking Status: Former smoker Smokeless Tobacco Status: No Alcohol use: Reports: none Drug use: Reports: none Physical Exam CONSTITUTIONAL: Alert and oriented X3, well-nourished, well appearing, in no apparent distress HEAD: Normocephalic; atraumatic. EYES: PERRL, no scleral icterus. NOSE: The nose is normal in appearance without rhinorrhea RESP: Normal chest excursion with respiration; breath sounds clear and equal bilaterally; no wheezes, rhonchi, or rales CARD: Regular rhythm, without murmurs, rub or gallop ABD: Non-distended; non-tender, soft,without rigidity, rebound or guarding SKIN: Normal for age and race; warm and dry; no apparent lesions Neck: Minimal pain with palpation over C7 Neuro: Cranial nerves III12 within normal limits except minimal decreased upgoing lip on the left-hand side, finger to nose testing is normal, strength 5/5 flexion and extension in all 4 extremities however right lower chin he does have pain in the patient did have knee surgery in this location. Sensation grossly intact. - General Limitations: no limitations General appearance: alert, in no apparent distress Course Vital Signs Temperature 98.2 F 05/23/18 14:43 Pulse Rate 72 05/23/18 14:43 Respiratory Rate 21 05/23/18 14:43 Blood Pressure 120/63 05/23/18 14:43 O2 Sat by Pulse Oximetry 92 05/23/18 14:43 Temperature 98.2 F 05/23/18 14:43 Pulse Rate 72 05/23/18 14:43 Respiratory Rate 21 05/23/18 14:43 Blood Pressure 120/63 05/23/18 14:43 O2 Sat by Pulse Oximetry 92 05/23/18 14:43 Oxygen Delivery Oxygen Delivery Room Air Medical Decision Making - MDM Narrative Medical decision making narrative: Patient's symptoms concerning, he will be admitted, it is not able to care for him at home, does have some confusion in conjunction with the left-sided facial droop will need further evaluation in the hospital. Emergent head CT is pending considering he is anticoagulated, neck CT also with his C7 pain on palpation. Labs are pending. I will order right ankle x-ray as he does have some pain there with his fall however I expect that will be likely negative. 1543 I did review the patient's EKG showing atrial fibrillation with a rate of 69 bpm and some baseline artifact but without acute ischemic change. She does have hx afib based on prvious ecg per cardiol earlier this month. CT scan of the brain and neck are negative, x-ray of the chest is negative. X-ray ankle is pending. Patient will be admitted to the hospital 1614 I did review the patient's labs and radiology testing and I did speak with the hospitalist who accepts the patient for admission with the main indication altered consciousness as well as inability to ambulate safely as well as the inability of the to care for the patient at home 1658 - Medical Records Medical records reviewed: Yes I reviewed the patient's medical records. - Lab Data Lab results reviewed: Yes I reviewed the patient's lab results. Result diagrams: 05/23/18 15:31 05/23/18 15:31 Lab Results 05/23/18 05/23/18 Range/Units 15:31 15:31 WBC 6.1 (4.3-11.1) K/mcL RBC 3.87 L (4.19-5.50) M/mcL Hgb 8.5 L (12.9-16.9) g/dL Hct 29.0 L (37.5-50.1) % MCV 74.9 L (83.0-100.0) fL MCH 22.0 L (28.0-33.3) pg MCHC 29.3 L (31.6-35.5) g/dL RDW 17.2 H (11.5-14.5) % Plt Count 199 (140-400) K/mcL MPV 9.7 (9.4-12.4) fL Sodium 141 (136-145) mEq/L Potassium 3.6 (3.5-5.1) mEq/L Chloride 104 (98-107) mEq/L Carbon Dioxide 30 H (23-29) mEq/L BUN 13 (8-23) mg/dL Creatinine 0.85 (0.70-1.30) mg/dL Est GFR ( Amer) > 60 (> 60) Est GFR (Non-Af Amer) > 60 (> 60) BUN/Creatinine Ratio 15 (6-26) Glucose 126 H (70-105) mg/dL Calculated Osmolality 294 (280-300) Calcium 9.0 (8.6-10.3) mg/dL Troponin I < 0.03 (< 0.04) ng/mL - Radiology Data Radiology results reviewed: Yes I reviewed the patient's radiology results.
[2018-05-23 16:06] LABS: Hemoglobin 8.5 g/dL (12.9-16.9); Mean Corpuscular HGB Conc 29.3 g/dL (31.6-35.5); Mean Corpuscular Volume 74.9 fL (83.0-100.0); Mean Platelet Volume 9.7 fL (9.4-12.4); Platelet Count 199 K/mcL (140-400); Red Blood Count 3.87 M/mcL (4.19-5.50); Red Cell Distribution Width 17.2 % (11.5-14.5)
[2018-05-23 16:20] LABS: BUN/Creatinine Ratio 15 (6-26); Blood Urea Nitrogen 13 mg/dL (8-23); Carbon Dioxide 30 mEq/L (23-29); Chloride 104 mEq/L (98-107); Glucose 126 mg/dL (70-105); Osmolality,Calculated 294 (280-300); Potassium 3.6 mEq/L (3.5-5.1); Sodium 141 mEq/L (136-145); eGFR For Non-African Americans > 60 (> 60)
[2018-05-23 16:21] LABS: Troponin I < 0.03 ng/mL (< 0.04)
[2018-05-23 16:55] LABS: Bilirubin,Urine Negative (Negative); Blood,Urine Negative (Negative); Clarity,Urine Clear (Clear); Color,Urine Yellow (Yellow); Glucose,Urine (UA) Normal (Normal); Ketones,Urine Negative (Negative); Leukocyte Esterase,Urine Negative (Negative); Nitrite,Urine Negative (Negative); Protein,Urine Negative (Neg-Trace); Specific Gravity,Urine < 1.005 (1.010-1.025); Urobilinogen,Urine Normal (Normal)
[2018-05-23] MEDS ORDERED: Naloxone 0.4 MG/ML INJ IVP PRN (17:30)
--- NOTE | 2018-05-23 17:34 | Internal Med History&Physical ---
Date of Encounter: 05/23/18 Time of Encounter: 17:55 Internal Medicine - H&P: HPI Chief complaint: I fell Admitted From: Home Plans for Post Hospital Care: Home History of present illness: Mr. Romero is a 68 year old male with medical history of prosthetic mitral valve, hypertension, hyperlipidemia, GERD, atrial fibrillation and on anticoagulation with warfarin. The patient is status post right knee arthroplasty on Sunday 05/20 He reports he was in his usual state of health till about 3 days ago when he fell , he describes this as a mechanical fall due to losing his balance, he denies chest pain, palpitations, dizziness or lightheadedness preceding his fall. Patient reports that he has since been feeling very weak and unable to bear weight on his right lower extremity since the fall. His family was unable to care for him at home due to difficulty with ambulation, therefore he presented to the emergency room. He denies shortness of breath, he denies speech problems, he denies weakness, he denies numbness or tingling, he denies facial droop and denies any focal weakness. He denies any confusion. According to the ER note, his had complained of patient being confused and having a droop , the patient denies this. He reports compliance with his home meds and denies any recent bleeding He has noticed swelling and pain of his R ankle and denies any neck pain, no problems with his knee and he denies calf tenderness. Work up in the ER showed chronic anemia, no leukocytosis, renal function is at baseline, glucose is elevated at 126 Imaging of the Head, C spine, and R knee are unremarkable for any acute fractures R ankle Xray reported as normal At time of eval, patient is not confused and has no neurologic deficits. he will be placed on obs for evaluation for fall, and inability to ambulate. he has no neurologic symptoms at this time, he is full code Past Med Surg Social Fam HX - Past Medical History Medical history: arthritis, GERD, hyperlipidemia, hypertension, valvular heart disease Additional medical history: arthritis in bilateral knees, enlarged prostate,heart disease,bilateral knee pain,history of mitral valve prolapse,left leg hematoma Psychiatric history: anxiety, depression - Past Surgical History Surgical History: appendectomy, other Additional surgical history: Mechanical mitral valve, total shoulder reversal,open heart surgery,shoulder arthroscopy,hematoma lower left leg, knee surgery - Social History Smoking Status: Former smoker Smokeless Tobacco Status: No Alcohol use: none Drug use: none - Family History Mother Adopted: No Living Status: Hx Family Cardiac Disorders: No Hx Family Respiratory Disorders: No Hx Family Cancer: Yes (colon) Hx Family GI Disorders: No Hx Family Endocrine Disorder: No Hx Family Neuromuscular Disorders: No Hx Family Neurologic Disorders: No Hx Family HEENT Disorders: No Hx Family Autoimmune Disorders: No Father Adopted: No Living Status: Hx Family Cardiac Disorders: No Hx Family Respiratory Disorders: Yes Hx Family Cancer: No Hx Family GI Disorders: No Hx Family Endocrine Disorder: No Hx Family Neuromuscular Disorders: No Hx Family Neurologic Disorders: No Hx Family HEENT Disorders: No Hx Family Autoimmune Disorders: No Brother Hx Family Cancer: Yes (pancreatic) Internal Medicine - H&P: Meds RX: Aspirin [Adult Aspirin Regimen] 81 mg PO DAILY 05/20/18 [History] RX: Atenolol [Tenormin] 50 mg PO DAILY 05/20/18 [History] RX: Atorvastatin [Lipitor] 40 mg PO DAILY 05/20/18 [History] RX: Buspirone HCl [Buspar] 60 mg PO DAILY 05/20/18 [History] RX: Chlorthalidone 12.5 mg PO DAILY 05/20/18 [History] RX: Escitalopram [Lexapro] 20 mg PO DAILY 05/20/18 [History] RX: Folic Acid 3 mg PO DAILY 05/20/18 [History] RX: Gabapentin [Neurontin] 300 mg PO BID 05/20/18 [History] RX: Omeprazole [PriLOSEC] 40 mg PO DAILY 05/20/18 [History] RX: Oxybutynin [Ditropan] 5 mg PO BID 05/20/18 [History] RX: Trazodone HCl 150 mg PO HS 05/20/18 [History] RX: Warfarin Sodium 5 mg PO SUTHSA 05/20/18 [History] RX: Warfarin Sodium 7.5 mg PO MOTUWEFR 05/20/18 [History] RX: HYDROcodone/Acet 5/325 mg [[place] 5-325 mg] 1 tab PO Q6H PRN 05/23/18 [History] Allergy/AdvReac Type Severity Reaction Status Date / Time Hydromorphone [From Dilaudid] Allergy Hallucinati Verified 05/20/18 08:03 ng venom-honey bee Allergy Difficulty Verified 05/20/18 08:03 [bee venom (honey bee)] Breathing All Systems PM: A 10-system review of systems was performed and is negative for pertinent findings except as documented above in the HPI. - Constitutional Constitutional: as per HPI - EENT Eyes: as per HPI Ears: as per HPI Nose, mouth and throat: as per HPI - Cardiovascular Cardiovascular ROS IM: as per HPI - Respiratory Respiratory: as per HPI - Gastrointestinal Gastrointestinal: as per HPI - Musculoskeletal Musculoskeletal ROS IM: as per HPI - Integumentary Integumentary IM: as per HPI - Neurological Neurological ROS: as per HPI - Hematologic/Lymphatic Hematologic/Lymphatic: as per HPI - Constitutional Vitals: Temp Pulse Resp BP Pulse Ox 98.2 F 72 21 120/63 92 05/23/18 14:43 05/23/18 14:43 05/23/18 14:43 05/23/18 14:43 05/23/18 14:43 General appearance: Present: A&O X 3, pleasant, no acute distress, obese Exam: see below - Head Head exam: Present: atraumatic, normocephalic - Eye Eye exam: Present: PERRL, conjuntiva pink, sclera anicteric Pupils: Present: PERRL - Neck Neck exam general surgery: Present: supple, trachea midline. Absent: lymphadenopathy Additional comments: mild tenderness lower neck region, paraspinal, no focal spot tenderness on c- spine - Respiratory Respiratory exam: Present: CTAB. Absent: accessory muscle use, rales, rhonchi, wheezes - Cardiovascular Cardiovascular exam: Present: RRR, +S1, +S2. Absent: diastolic murmur, gallop, rubs, systolic murmur - GI/Abdominal GI/Abdominal exam: Present: normal bowel sounds, soft, no peritoneal signs. Absent: distended, tenderness - Extremities Exam Extremities exam: Present: joint swelling (R ankle joint swelling), normal capillary refill, pedal edema (piting pedal edema of R ankle only), tenderness (R ankle tenderness), warm, radial pulses palpable and symmetrical. Absent: c long-term tenderness, cyanotic - Neurological Exam Neurological exam: Present: alert, CN II-XII intact, oriented X3, no focal deficits. Absent: pronater drift, facial droop, speech deficit - Skin Skin exam: Present: dry, intact Internal Med - H&P Results - Labs CBC & Chem 7: 05/24/18 04:25 05/24/18 04:25 Labs: Short CBC 05/23/18 Range/Units 15:31 WBC 6.1 (4.3-11.1) K/mcL Hgb 8.5 L (12.9-16.9) g/dL Hct 29.0 L (37.5-50.1) % Plt Count 199 (140-400) K/mcL BMP 05/23/18 15:31 Sodium 141 Potassium 3.6 Chloride 104 Carbon Dioxide 30 H BUN 13 Creatinine 0.85 Glucose 126 H Calcium 9.0 Cardiac Enzymes 05/23/18 Range/Units 15:31 Troponin I < 0.03 (< 0.04) ng/mL Urine 05/23/18 Range/Units 16:26 Urine Color Yellow (Yellow) Urine Clarity Clear (Clear) Urine pH 7.0 (5.0-8.0) pH Units Ur Specific [place] < 1.005 L (1.010-1.025) Urine Protein Negative (Neg-Trace) mg/dL Urine Glucose (UA) Normal (Normal) mg/dL - Impressions ITS Impressions Cervical Spine CT 05/23/18 15:09 IMPRESSION: No acute abnormality of the cervical spine. Multilevel degenerative changes, similar to prior exams from November of this year. D/ / Roger Saldana MD / Roger Saldana MD Interpreting Provider: Roger Saldana MD Head CT 05/23/18 15:09 IMPRESSION: No acute intracranial abnormality. Diffuse atrophic changes with findings suggesting chronic microvascular ischemia D/ / Galo Barillas MD / Galo Barillas MD Interpreting Provider: Galo Barillas MD Chest X-Ray 05/23/18 15:10 IMPRESSION: No acute process. Stable cardiomegaly D/ / Galo Barillas MD / Galo Barillas MD Interpreting Provider: Galo Barillas MD Ankle X-Ray 05/23/18 16:15 IMPRESSION: No acute abnormality of the ankle. D/ / Galo Barillas MD / Galo Barillas MD Interpreting Provider: Galo Barillas MD - Assessment and plan (1) Unable to ambulate Current Visit: Yes Status: Acute Assessment and plan: Following fall with swollen R ankle Follow ankle CT and doppler USS of RLE Pain control PTOT eval (2) Fall Current Visit: Yes Status: Acute Assessment and plan: Fall precautions PTOT eval a.m Qualifiers: Encounter type: initial encounter Qualified Code(s): W19.XXXA - Unspecified fall, initial encounter (3) Anemia Current Visit: Yes Status: Chronic Assessment and plan: Chronic, stable, Hb pre op was 8.9 MCV is low, at 74.9, previosuly anemia was normocytic Obtain iron profile and anemia work up Type and screen Patient is asymptomatic Continue to monitor Qualifiers: Anemia type: unspecified type Qualified Code(s): D64.9 - Anemia, unspecified (4) Atrial fibrillation Current Visit: Yes Status: Chronic Assessment and plan: HR controlled on current regimen INR is therapeutic Continue home meds, continue warfarin Qualifiers: Atrial fibrillation type: chronic Qualified Code(s): I48.2 - Chronic atrial fibrillation (5) H/O mitral valve replacement with mechanical valve Current Visit: Yes Status: Chronic Assessment and plan: Chronic, asymptomatic, on warfarin, continue same INR 2.0 (6) Right ankle swelling Current Visit: Yes Status: Acute Assessment and plan: likely related to trauma, Xray reported as normal Will order ankle CT, patient has excruciating pain on palpation and ROM is decreased, capillary refill is WNL Patient with recent knee surgery on 05/20, Knee Xray not performed, patient has no symptoms on his R knee Obtain Doppler USS-DVT less likelya s patient is anticoagulated on warfarin PTOT evaluation Elevate limb (7) DVT prophylaxis Current Visit: Yes Status: Acute Assessment and plan: Anticoagulated on warfarin, INR is 2.0 - Time Spent With Patient Total time spent is greater than 50% in coordination of care (as documented) at patient's floor/unit and/or counseling patient:
[2018-05-23] MEDS: *HR* Warfarin 5 MG TABLET PO SCH (20:15)
[2018-05-23] MEDS: Gabapentin 300 MG CAPSULE PO SCH (20:15)
[2018-05-23] MEDS: traZODone 50 MG TABLET PO SCH (20:15)
[2018-05-23] MEDS: *HR* HYDROcodone/Acet 5/325 mg TABLET PO PRN (20:19)
[2018-05-24 04:43] LABS: Basophils % 0.6 %; Eosinophils # 0.3 K/mcL (0.0-0.6); Eosinophils % 6.5 %; Hemoglobin 8.8 g/dL (12.9-16.9); Immature Granulocytes % 0.2 % (0-4); Lymphocytes # 0.4 K/mcL (0.6-4.6); Mean Corpuscular HGB Conc 29.3 g/dL (31.6-35.5); Mean Corpuscular Hemoglobin 21.9 pg (28.0-33.3); Mean Corpuscular Volume 74.8 fL (83.0-100.0); Mean Platelet Volume 9.4 fL (9.4-12.4); Monocytes # 0.3 K/mcL (0.0-1.3); Monocytes % 7.3 %; Neutrophils # 3.6 K/mcL (1.6-8.9); Platelet Count 193 K/mcL (140-400); Red Blood Count 4.01 M/mcL (4.19-5.50); Segmented Neutrophils % 77.4 %
[2018-05-24 04:54] LABS: INR 2.2; Prothrombin Time 24.8 Seconds (9.4-12.1)
[2018-05-24 05:00] LABS: % Iron Saturation 4 % (20-55); Iron 13 mcg/dL (65-175); Transferrin 259 mg/dL (203-362)
[2018-05-24 05:02] LABS: BUN/Creatinine Ratio 13 (6-26); Blood Urea Nitrogen 11 mg/dL (8-23); Calcium 9.3 mg/dL (8.6-10.3); Carbon Dioxide 30 mEq/L (23-29); Chloride 104 mEq/L (98-107); Glucose 104 mg/dL (70-105); Osmolality,Calculated 292 (280-300); Potassium 3.6 mEq/L (3.5-5.1); Sodium 141 mEq/L (136-145); eGFR For Non-African Americans > 60 (> 60)
[2018-05-24 05:27] LABS: Vitamin B12 358 pg/mL (250-1100)
[2018-05-24 05:28] LABS: Folate > 22.3 ng/mL (3.0-16.0)
--- NOTE | 2018-05-24 08:45 | Internal Med Progress Note ---
Hospitalist Progress Note - Encounter Date of Encounter: 05/24/18 Time of Encounter: 08:44 - Subjective Interval History: Seen and evaluated with at bedside s/p R knee arthroscopy ad meniscal repair 05/20, admitted to obs following a mechanical fall with R foot malleolar fracture His is concerned he might be confused "due to the anesthesia he received from surgery on 05/20 The patient himself states he feels better this a.m PTOT and ortho eval are pending - Exam Vitals: Temp Pulse Resp BP Pulse Ox 98.8 F 96 16 121/74 93 05/24/18 06:51 05/24/18 06:51 05/24/18 06:51 05/24/18 06:51 05/24/18 06:51 Exam: Vitals stable, afebrile Gen: Morbidly obese, not in distress HEENT: Moist oral mucosa, not pale, anicteric Chest: Equal chest movt bilaterally Resp: CTAB, no added sounds Heart: S1, S2 only, no m/g/r Abdomen: Soft, not tender Extremities:Right ankle tenderness, swelling and erythema, normal capillary refill, moves and wrigles toes without distress. R knee with no signifcant findings. Left extremities unremarkable - Assessment and Plan (1) Unable to ambulate Current Visit: Yes Status: Acute Assessment and Plan: Following fall with acute R posterior malleolar fracture Ortho eval Prelim doppler study resulted with no DVT Pain control PTOT eval (2) Fall Current Visit: Yes Status: Acute Assessment and Plan: Fall precautions PTOT eval (3) Anemia Current Visit: Yes Status: Chronic Assessment and Plan: Chronic, stable, Hb pre op was 8.9 MCV is low, at 74.9, previosuly anemia was normocytic iron level is low Type and screen Patient is asymptomatic Continue to monitor (4) Atrial fibrillation Current Visit: Yes Status: Chronic Assessment and Plan: HR controlled on current regimen INR is therapeutic Continue home meds, continue warfarin (5) H/O mitral valve replacement with mechanical valve Current Visit: Yes Status: Chronic Assessment and Plan: Chronic, asymptomatic, on warfarin, continue same INR 2.2 (6) Right ankle swelling Current Visit: Yes Status: Acute Assessment and Plan: Secondary to fracture of R malleollus (7) DVT prophylaxis Current Visit: Yes Status: Acute Assessment and Plan: Anticoagulated on warfarin, INR is 2.2 (8) Malleolar fracture Current Visit: Yes Status: Acute Assessment and Plan: Ortho called and consulted - Time Spent with Patient Total time spent is greater than 50% in coordination of care (as documented) at patient's floor/unit and/or counseling patient: Plan of Care Discussed with: patient Internal Medicine: Result - Labs CBC & Chem 7: 05/24/18 04:25 05/24/18 04:25 Labs: Short CBC 05/23/18 05/24/18 Range/Units 15:31 04:25 WBC 6.1 4.6 (4.3-11.1) K/mcL Hgb 8.5 L 8.8 L (12.9-16.9) g/dL Hct 29.0 L 30.0 L (37.5-50.1) % Plt Count 199 193 (140-400) K/mcL Neutrophils # 3.6 (1.6-8.9) K/mcL BMP 05/23/18 05/24/18 15:31 04:25 Sodium 141 141 Potassium 3.6 3.6 Chloride 104 104 Carbon Dioxide 30 H 30 H BUN 13 11 Creatinine 0.85 0.83 Glucose 126 H 104 Calcium 9.0 9.3 Cardiac Enzymes 05/23/18 Range/Units 15:31 Troponin I < 0.03 (< 0.04) ng/mL Urine 05/23/18 Range/Units 16:26 Urine Color Yellow (Yellow) Urine Clarity Clear (Clear) Urine pH 7.0 (5.0-8.0) pH Units Ur Specific [place] < 1.005 L (1.010-1.025) Urine Protein Negative (Neg-Trace) mg/dL Urine Glucose (UA) Normal (Normal) mg/dL - ABG Interpretation ABG results: PT/INR, D-dimer PT 24.8 Seconds (9.4-12.1) H 05/24/18 04:25 - Impressions Impressions Cervical Spine CT 05/23/18 15:09 IMPRESSION: No acute abnormality of the cervical spine. Multilevel degenerative changes, similar to prior exams from November of this year. D/ / Roger Saldana MD / Roger Saldana MD Interpreting Provider: Roger Saldana MD Head CT 05/23/18 15:09 IMPRESSION: No acute intracranial abnormality. Diffuse atrophic changes with findings suggesting chronic microvascular ischemia D/ / Galo Barillas MD / Galo Barillas MD Interpreting Provider: Galo Barillas MD Chest X-Ray 05/23/18 15:10 IMPRESSION: No acute process. Stable cardiomegaly D/ / Galo Barillas MD / Galo Barillas MD Interpreting Provider: Galo Barillas MD Ankle X-Ray 05/23/18 16:15 IMPRESSION: No acute abnormality of the ankle. D/ / Galo Barillas MD / Galo Barillas MD Interpreting Provider: Galo Barillas MD Ankle CT 05/23/18 18:04 IMPRESSION: 1. Acute, nondisplaced fracture of the posterior malleolus. 2. Moderate soft tissue edema of the ankle and dorsal foot. 3. Small subtalar joint effusion. D/ / Vern Gaviria MD / Vern Gaviria MD Interpreting Provider: Vern Gaviria MD Consult Discharge Plan - Plan Referrals: Arnaldo De La Rosa MD [Primary Care Provider] - (2) Fall Qualifiers: Encounter type: initial encounter Qualified Code(s): W19.XXXA - Unspecified fall, initial encounter (3) Anemia Qualifiers: Anemia type: unspecified type Qualified Code(s): D64.9 - Anemia, unspecified (4) Atrial fibrillation Qualifiers: Atrial fibrillation type: chronic Qualified Code(s): I48.2 - Chronic atrial fibrillation (8) Malleolar fracture Qualifiers: Encounter type: initial encounter Fracture type: closed Laterality: right Qualified Code(s): S82.891A - Other fracture of right lower leg, initial encounter for closed fracture
--- NOTE | 2018-05-24 09:20 | Orthopedic Consult Note ---
Date of Encounter: 05/25/18 Time of Encounter: 09:17 Assessment and Plan (1) Closed fracture of posterior malleolus of right tibia Current Visit: Yes Status: Acute Non-op - WBAT, placed in ASO ankle brace to be worn x 4-6 weeks. f/up 1 week - s.p Right Knee Arthroscopy Partial Medial and lateral meniscectomy 05/20. Continue with post-operative care. Sutures intact. PT/OT ECF recommended. Qualifiers: Encounter type: initial encounter Qualified Code(s): S82.391A - Other fracture of lower end of right tibia, initial encounter for closed fracture (2) Status post arthroscopic partial lateral meniscectomy Current Visit: Yes Status: Acute History of Present Illness Chief complaint: AMS, fall HPI: Mr. Romero is a 68 year old male, s/p a Right Knee Arthroscopy partial medial and lateral meniscectomy 05/20 with . Per patients , he has had confusion since POD#1, which is not uncommon for him; however it started worsening over the last 2 days. May be related to pain medication versus ing. He fell at home, and came to the ED. He denies increased Right knee pain, admits to Right ankle pain and swelling. Denies N/T or radiation of pain. ROM limited, unable to WB secondary to pain. CT - malleolar fracture to right distal tibia. Exam: RLE - +swelling, no erythema or ecchymosis noted. Past Med Surg Social Fam HX - Past Medical History Medical history: arthritis, GERD, hyperlipidemia, hypertension, valvular heart disease Additional medical history: arthritis in bilateral knees, enlarged prostate,heart disease,bilateral knee pain,history of mitral valve prolapse,left leg hematoma Psychiatric history: anxiety, depression - Past Surgical History Surgical History: appendectomy, other Additional surgical history: Mechanical mitral valve, total shoulder reversal,open heart surgery,shoulder arthroscopy,hematoma lower left leg, knee surgery - Social History Smoking Status: Former smoker Smokeless Tobacco Status: No Alcohol use: none Drug use: none - Family History Mother Adopted: No Living Status: Hx Family Cardiac Disorders: No Hx Family Respiratory Disorders: No Hx Family Cancer: Yes (colon) Hx Family GI Disorders: No Hx Family Endocrine Disorder: No Hx Family Neuromuscular Disorders: No Hx Family Neurologic Disorders: No Hx Family HEENT Disorders: No Hx Family Autoimmune Disorders: No Father Adopted: No Living Status: Hx Family Cardiac Disorders: No Hx Family Respiratory Disorders: Yes Hx Family Cancer: No Hx Family GI Disorders: No Hx Family Endocrine Disorder: No Hx Family Neuromuscular Disorders: No Hx Family Neurologic Disorders: No Hx Family HEENT Disorders: No Hx Family Autoimmune Disorders: No Brother Hx Family Cancer: Yes (pancreatic) Medications and Allergies Aspirin [Adult Aspirin Regimen] 81 mg PO DAILY 05/20/18 [History] Atenolol [Tenormin] 50 mg PO DAILY 05/20/18 [History] Atorvastatin [Lipitor] 40 mg PO DAILY 05/20/18 [History] Buspirone HCl [Buspar] 60 mg PO DAILY 05/20/18 [History] Chlorthalidone 12.5 mg PO DAILY 05/20/18 [History] Escitalopram [Lexapro] 20 mg PO DAILY 05/20/18 [History] Folic Acid 3 mg PO DAILY 05/20/18 [History] Gabapentin [Neurontin] 300 mg PO BID 05/20/18 [History] Omeprazole [PriLOSEC] 40 mg PO DAILY 05/20/18 [History] Oxybutynin [Ditropan] 5 mg PO BID 05/20/18 [History] Trazodone HCl 150 mg PO HS 05/20/18 [History] Warfarin Sodium 5 mg PO SUTHSA 05/20/18 [History] Warfarin Sodium 7.5 mg PO MOTUWEFR 05/20/18 [History] HYDROcodone/Acet 5/325 mg [[place] 5-325 mg] 1 tab PO Q6H PRN 05/23/18 [History] Allergy/AdvReac Type Severity Reaction Status Date / Time Hydromorphone [From Dilaudid] Allergy Hallucinati Verified 05/20/18 08:03 ng venom-honey bee Allergy Difficulty Verified 05/20/18 08:03 [bee venom (honey bee)] Breathing All Systems Reviewed: The remainder of the systems were reviewed and are negative Physical Exam - Constitutional Vitals: Temp Pulse Resp BP Pulse Ox 98.8 F 96 16 121/74 93 05/24/18 06:51 05/24/18 06:51 05/24/18 06:51 05/24/18 06:51 05/24/18 06:51 Results - Labs Result Diagrams: 05/25/18 05:22 05/25/18 05:22 Labs: Abnormal lab results RBC 4.01 M/mcL (4.19-5.50) L 05/24/18 04:25 Hgb 8.8 g/dL (12.9-16.9) L 05/24/18 04:25 Hct 30.0 % (37.5-50.1) L 05/24/18 04:25 MCV 74.8 fL (83.0-100.0) L 05/24/18 04:25 MCH 21.9 pg (28.0-33.3) L 05/24/18 04:25 MCHC 29.3 g/dL (31.6-35.5) L 05/24/18 04:25 RDW 17.0 % (11.5-14.5) H 05/24/18 04:25 Lymphocytes # 0.4 K/mcL (0.6-4.6) L 05/24/18 04:25 PT 24.8 Seconds (9.4-12.1) H 05/24/18 04:25 Carbon Dioxide 30 mEq/L (23-29) H 05/24/18 04:25 Iron 13 mcg/dL (65-175) L 05/24/18 04:25 % Saturation 4 % (20-55) L 05/24/18 04:25 Folate > 22.3 ng/mL (3.0-16.0) H 05/24/18 04:25 Ur Specific [place] < 1.005 (1.010-1.025) L 05/23/18 16:26 H & H 05/23/18 05/24/18 Range/Units 15:31 04:25 Hgb 8.5 L 8.8 L (12.9-16.9) g/dL Hct 29.0 L 30.0 L (37.5-50.1) % All other labs normal. Consult Discharge Plan - Plan Referrals: Arnaldo De La Rosa MD [Primary Care Provider] -
[2018-05-24] MEDS: Folic Acid 1 MG TABLET PO SCH (09:33)
[2018-05-24] MEDS: *HR* HYDROcodone/Acet 5/325 mg TABLET PO PRN (09:35)
[2018-05-24] MEDS: Aspirin Enteric Coated 81 MG Tablet PO SCH (09:36)
[2018-05-24] MEDS: Gabapentin 300 MG CAPSULE PO SCH ×2 (09:36→19:53)
[2018-05-24] MEDS: *HR* Warfarin 5 MG TABLET PO SCH (18:02)
[2018-05-24] MEDS: traZODone 50 MG TABLET PO SCH (19:54)
[2018-05-25] MEDS: *HR* HYDROcodone/Acet 5/325 mg TABLET PO PRN ×3 (02:24→16:20)
[2018-05-25 06:05] LABS: Basophils % 0.5 %; Eosinophils # 0.4 K/mcL (0.0-0.6); Hematocrit 28.8 % (37.5-50.1); Hemoglobin 8.4 g/dL (12.9-16.9); Immature Granulocytes % 0.2 % (0-4); Lymphocytes # 0.6 K/mcL (0.6-4.6); Lymphocytes % 10.5 %; Mean Corpuscular HGB Conc 29.2 g/dL (31.6-35.5); Mean Corpuscular Hemoglobin 21.8 pg (28.0-33.3); Mean Corpuscular Volume 74.8 fL (83.0-100.0); Mean Platelet Volume 9.6 fL (9.4-12.4); Monocytes # 0.7 K/mcL (0.0-1.3); Monocytes % 11.3 %; Platelet Count 201 K/mcL (140-400); Red Blood Count 3.85 M/mcL (4.19-5.50); Red Cell Distribution Width 17.2 % (11.5-14.5); Segmented Neutrophils % 70.5 %
[2018-05-25 06:27] LABS: BUN/Creatinine Ratio 15 (6-26); Blood Urea Nitrogen 13 mg/dL (8-23); Calcium 8.9 mg/dL (8.6-10.3); Carbon Dioxide 30 mEq/L (23-29); Chloride 104 mEq/L (98-107); Glucose 120 mg/dL (70-105); Osmolality,Calculated 291 (280-300); Potassium 3.9 mEq/L (3.5-5.1); Sodium 140 mEq/L (136-145); eGFR For Non-African Americans > 60 (> 60)
[2018-05-25 08:44] LABS: INR 2.5; Prothrombin Time 28.2 Seconds (9.4-12.1)
--- NOTE | 2018-05-25 09:07 | Internal Med Progress Note ---
Hospitalist Progress Note - Encounter Date of Encounter: 05/25/18 Time of Encounter: 09:07 - Subjective Interval History: Seen and evaluated with at bedside s/p R knee arthroscopy and meniscal repair 05/20, admitted following a mechanical fall with R foot malleolar fracture The patient reports he wa ambulatory this a. with his walker his foot is in a brace and he has some improvement in pain and swelling PTOT recommends swing bed, patient is reluctant and himself and his are trying to decide he is otherwise stable - Exam Vitals: Temp Pulse Resp BP Pulse Ox 97.8 F 70 16 116/70 94 05/25/18 06:54 05/25/18 06:54 05/25/18 06:54 05/25/18 06:54 05/25/18 06:54 Exam: Vitals stable, afebrile Gen: Morbidly obese, not in distress HEENT: Moist oral mucosa, not pale, anicteric Chest: Equal chest movt bilaterally Resp: CTAB, no added sounds Heart: S1, S2 only, no m/g/r Abdomen: Soft, not tender Extremities:Right ankle in brace. Left extremities unremarkable - Assessment and Plan (1) Unable to ambulate Current Visit: Yes Status: Acute Assessment and Plan: Following fall with acute R posterior malleolar fracture Ortho eval noted and appreciated Prelim doppler study result noted with no DVT Pain control PTOT eval noted, for swing bed (2) Fall Current Visit: Yes Status: Acute Assessment and Plan: Fall precautions PTOT eval (3) Anemia Current Visit: Yes Status: Chronic Assessment and Plan: Chronic, stable, Hb pre op was 8.9 MCV is low, at 74.9, previosuly anemia was normocytic iron level is low, start on supplements Type and screen Patient is asymptomatic Continue to monitor (4) Atrial fibrillation Current Visit: Yes Status: Chronic Assessment and Plan: HR controlled on current regimen INR is therapeutic Continue home meds, continue warfarin (5) H/O mitral valve replacement with mechanical valve Current Visit: Yes Status: Chronic Assessment and Plan: Chronic, asymptomatic, on warfarin, continue same INR 2.5 (6) Right ankle swelling Current Visit: Yes Status: Acute Assessment and Plan: Secondary to fracture of R malleollus (7) DVT prophylaxis Current Visit: Yes Status: Acute Assessment and Plan: Anticoagulated on warfarin, INR is 2.2 (8) Malleolar fracture Current Visit: Yes Status: Acute Assessment and Plan: Ortho called and consulted, input appreciated, conservative management and PT - Time Spent with Patient Total time spent is greater than 50% in coordination of care (as documented) at patient's floor/unit and/or counseling patient: Plan of Care Discussed with: patient Internal Medicine: Result - Labs CBC & Chem 7: 05/25/18 05:22 05/25/18 05:22 Labs: Short CBC 05/25/18 Range/Units 05:22 WBC 5.7 (4.3-11.1) K/mcL Hgb 8.4 L (12.9-16.9) g/dL Hct 28.8 L (37.5-50.1) % Plt Count 201 (140-400) K/mcL Neutrophils # 4.0 (1.6-8.9) K/mcL BMP 05/25/18 05:22 Sodium 140 Potassium 3.9 Chloride 104 Carbon Dioxide 30 H BUN 13 Creatinine 0.84 Glucose 120 H Calcium 8.9 - ABG Interpretation ABG results: PT/INR, D-dimer PT 28.2 Seconds (9.4-12.1) H 05/25/18 08:16 Consult Discharge Plan - Plan Referrals: Arnaldo De La Rosa MD [Primary Care Provider] - (2) Fall Qualifiers: Encounter type: initial encounter Qualified Code(s): W19.XXXA - Unspecified fall, initial encounter (3) Anemia Qualifiers: Anemia type: unspecified type Qualified Code(s): D64.9 - Anemia, unspecified (4) Atrial fibrillation Qualifiers: Atrial fibrillation type: chronic Qualified Code(s): I48.2 - Chronic atrial fibrillation (8) Malleolar fracture Qualifiers: Encounter type: initial encounter Fracture type: closed Laterality: right Qualified Code(s): S82.891A - Other fracture of right lower leg, initial encounter for closed fracture
[2018-05-25] MEDS: Gabapentin 300 MG CAPSULE PO SCH ×2 (09:52→20:29)
[2018-05-25] MEDS: Aspirin Enteric Coated 81 MG Tablet PO SCH (09:52)
[2018-05-25] MEDS: Folic Acid 1 MG TABLET PO SCH (09:53)
[2018-05-25] MEDS: *HR* Warfarin 5 MG TABLET PO SCH (18:27)
[2018-05-25] MEDS: traZODone 50 MG TABLET PO SCH (20:29)
[2018-05-26 06:11] LABS: Basophils % 0.6 %; Eosinophils # 0.4 K/mcL (0.0-0.6); Eosinophils % 7.8 %; Hematocrit 31.1 % (37.5-50.1); Hemoglobin 8.8 g/dL (12.9-16.9); Immature Granulocytes % 0.6 % (0-4); Lymphocytes # 0.5 K/mcL (0.6-4.6); Lymphocytes % 9.8 %; Mean Corpuscular HGB Conc 28.3 g/dL (31.6-35.5); Mean Corpuscular Hemoglobin 21.3 pg (28.0-33.3); Mean Corpuscular Volume 75.1 fL (83.0-100.0); Mean Platelet Volume 9.4 fL (9.4-12.4); Monocytes # 0.6 K/mcL (0.0-1.3); Monocytes % 10.7 %; Neutrophils # 3.8 K/mcL (1.6-8.9); Platelet Count 221 K/mcL (140-400); Red Blood Count 4.14 M/mcL (4.19-5.50); Red Cell Distribution Width 17.3 % (11.5-14.5); Segmented Neutrophils % 70.5 %
[2018-05-26 06:19] LABS: INR 3.1; Prothrombin Time 35.3 Seconds (9.4-12.1)
[2018-05-26 06:23] LABS: Anisocytosis 1+ (Not Present); Hypochromasia Present (Not Present); Platelet Estimate Normal (Normal); Poikilocytosis 1+ (Not Present)
[2018-05-26 06:33] LABS: BUN/Creatinine Ratio 16 (6-26); Blood Urea Nitrogen 14 mg/dL (8-23); Calcium 9.1 mg/dL (8.6-10.3); Carbon Dioxide 29 mEq/L (23-29); Chloride 102 mEq/L (98-107); Glucose 120 mg/dL (70-105); Osmolality,Calculated 290 (280-300); Potassium 3.5 mEq/L (3.5-5.1); Sodium 139 mEq/L (136-145); eGFR For Non-African Americans > 60 (> 60)
[2018-05-26] MEDS: Folic Acid 1 MG TABLET PO SCH (08:17)
[2018-05-26] MEDS: Gabapentin 300 MG CAPSULE PO SCH ×2 (08:18→20:05)
[2018-05-26] MEDS: Aspirin Enteric Coated 81 MG Tablet PO SCH (08:18)
[2018-05-26] MEDS: *HR* HYDROcodone/Acet 5/325 mg TABLET PO PRN ×2 (08:26→14:33)
--- NOTE | 2018-05-26 09:57 | Internal Med Progress Note ---
Hospitalist Progress Note - Encounter Date of Encounter: 05/26/18 Time of Encounter: 09:57 - Subjective Interval History: Seen and evaluated at bedside s/p R knee arthroscopy and meniscal repair 05/20, admitted following a mechanical fall with R foot malleolar fracture The patient reports he wa ambulatory with his walker his foot is in a brace and he has some improvement in pain and swelling PTOT recommends swing bed, awaiting placement, patient has agreed to be placed he is otherwise stable INR 3.1 today - Exam Vitals: Temp Pulse Resp BP Pulse Ox 98.1 F 78 16 121/64 95 05/26/18 07:00 05/26/18 07:00 05/26/18 07:00 05/26/18 07:00 05/26/18 07:00 Exam: Vitals stable, afebrile Gen: Morbidly obese, not in distress HEENT: Moist oral mucosa, not pale, anicteric Chest: Equal chest movt bilaterally Resp: CTAB, no added sounds Heart: S1, S2 only, no m/g/r Abdomen: Soft, not tender Extremities:Right ankle in brace. Left extremities unremarkable - Assessment and Plan (1) Unable to ambulate Current Visit: Yes Status: Acute Assessment and Plan: Following fall with acute R posterior malleolar fracture Ortho eval noted and appreciated Prelim doppler study result noted with no DVT Pain control PTOT eval noted, for swing bed (2) Fall Current Visit: Yes Status: Acute Assessment and Plan: Fall precautions PTOT eval (3) Anemia Current Visit: Yes Status: Chronic Assessment and Plan: Chronic, stable, Hb pre op was 8.9 MCV is low, at 74.9, previosuly anemia was normocytic iron level is low, continue on supplements Type and screen Patient is asymptomatic Continue to monitor (4) Atrial fibrillation Current Visit: Yes Status: Chronic Assessment and Plan: HR controlled on current regimen INR is 3.1, continue warfarin, continue to monitor INR (5) H/O mitral valve replacement with mechanical valve Current Visit: Yes Status: Chronic Assessment and Plan: Chronic, asymptomatic, on warfarin, continue same INR 3.1, continue warfarin (6) Right ankle swelling Current Visit: Yes Status: Acute Assessment and Plan: Secondary to fracture of R malleollus Improved (7) DVT prophylaxis Current Visit: Yes Status: Acute Assessment and Plan: Anticoagulated on warfarin, INR is 3.1 (8) Malleolar fracture Current Visit: Yes Status: Acute Assessment and Plan: Ortho called and consulted, input appreciated, conservative management and PT - Time Spent with Patient Total time spent is greater than 50% in coordination of care (as documented) at patient's floor/unit and/or counseling patient: Plan of Care Discussed with: patient Internal Medicine: Result - Labs CBC & Chem 7: 05/26/18 05:32 05/26/18 05:32 Labs: Short CBC 05/26/18 Range/Units 05:32 WBC 5.4 (4.3-11.1) K/mcL Hgb 8.8 L (12.9-16.9) g/dL Hct 31.1 L (37.5-50.1) % Plt Count 221 (140-400) K/mcL Neutrophils # 3.8 (1.6-8.9) K/mcL BMP 05/26/18 05:32 Sodium 139 Potassium 3.5 Chloride 102 Carbon Dioxide 29 BUN 14 Creatinine 0.88 Glucose 120 H Calcium 9.1 - ABG Interpretation ABG results: PT/INR, D-dimer PT 35.3 Seconds (9.4-12.1) H 05/26/18 05:32 Consult Discharge Plan - Plan Referrals: Arnaldo De La Rosa MD [Primary Care Provider] - (2) Fall Qualifiers: Encounter type: initial encounter Qualified Code(s): W19.XXXA - Unspecified fall, initial encounter (3) Anemia Qualifiers: Anemia type: unspecified type Qualified Code(s): D64.9 - Anemia, unspecified (4) Atrial fibrillation Qualifiers: Atrial fibrillation type: chronic Qualified Code(s): I48.2 - Chronic atrial fibrillation (8) Malleolar fracture Qualifiers: Encounter type: initial encounter Fracture type: closed Laterality: right Qualified Code(s): S82.891A - Other fracture of right lower leg, initial encounter for closed fracture
[2018-05-26] MEDS: traZODone 50 MG TABLET PO SCH (20:06)
[2018-05-27 04:17] LABS: Lymphocytes % 8.8 %; Mean Corpuscular HGB Conc 28.9 g/dL (31.6-35.5)
[2018-05-27 04:18] LABS: Basophils % 0.7 %; Eosinophils # 0.4 K/mcL (0.0-0.6); Eosinophils % 6.8 %; Hematocrit 29.4 % (37.5-50.1); Hemoglobin 8.5 g/dL (12.9-16.9); Immature Granulocytes % 0.2 % (0-4); Mean Corpuscular Hemoglobin 21.4 pg (28.0-33.3); Mean Corpuscular Volume 73.9 fL (83.0-100.0); Mean Platelet Volume 9.9 fL (9.4-12.4); Monocytes # 0.7 K/mcL (0.0-1.3); Monocytes % 11.1 %; Neutrophils # 4.5 K/mcL (1.6-8.9); Platelet Count 222 K/mcL (140-400); Red Blood Count 3.98 M/mcL (4.19-5.50); Red Cell Distribution Width 17.3 % (11.5-14.5); Segmented Neutrophils % 72.4 %
[2018-05-27 04:22] LABS: Lymphocytes # 0.6 K/mcL (0.6-4.6)
[2018-05-27 04:30] LABS: INR 2.7; Prothrombin Time 30.6 Seconds (9.4-12.1)
[2018-05-27 04:53] LABS: Anisocytosis 1+ (Not Present); Hypochromasia Present (Not Present); Polychromasia 1+ (Not Present)
--- NOTE | 2018-05-27 06:36 | Electrocardiograph Report ---
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
[2018-05-27] MEDS: Gabapentin 300 MG CAPSULE PO SCH ×2 (08:45→20:45)
[2018-05-27] MEDS: Aspirin Enteric Coated 81 MG Tablet PO SCH (08:46)
[2018-05-27] MEDS: Folic Acid 1 MG TABLET PO SCH (08:46)
--- NOTE | 2018-05-27 09:36 | Discharge Summary ---
Orders not resulted at time of discharge: Pending orders 05/28/18 04:00 PT/INR [Prothrombin Time INR] [COAG] AM 0400 05/29/18 04:00 PT/INR [Prothrombin Time INR] [COAG] AM 0400 05/30/18 04:00 PT/INR [Prothrombin Time INR] [COAG] AM 0400 05/31/18 04:00 PT/INR [Prothrombin Time INR] [COAG] AM 0400 06/01/18 04:00 PT/INR [Prothrombin Time INR] [COAG] AM 0400 Date of Encounter: 05/27/18 Time of Encounter: 09:36 - Discharge Diagnosis (1) Unable to ambulate Status: Acute (2) Fall Status: Acute Qualifiers: Encounter type: initial encounter Qualified Code(s): W19.XXXA - Unspecified fall, initial encounter (3) Anemia Status: Chronic Qualifiers: Anemia type: unspecified type Qualified Code(s): D64.9 - Anemia, unspecified (4) Atrial fibrillation Status: Chronic Qualifiers: Atrial fibrillation type: chronic Qualified Code(s): I48.2 - Chronic atrial fibrillation (5) H/O mitral valve replacement with mechanical valve Status: Chronic (6) Right ankle swelling Status: Acute (7) DVT prophylaxis Status: Acute (8) Malleolar fracture Status: Acute Qualifiers: Encounter type: initial encounter Fracture type: closed Laterality: right Qualified Code(s): S82.891A - Other fracture of right lower leg, initial encounter for closed fracture Hospital course: Mr. Romero is a 68 year old male - Time Spent with Patient Total time spent providing and/or coordinating discharge services: - Discharge Medications Home Medications: Aspirin [Adult Aspirin Regimen] 81 mg PO DAILY 05/20/18 [History] Atenolol [Tenormin] 50 mg PO DAILY 05/20/18 [History] Atorvastatin [Lipitor] 40 mg PO DAILY 05/20/18 [History] Buspirone HCl [Buspar] 60 mg PO DAILY 05/20/18 [History] Chlorthalidone 12.5 mg PO DAILY 05/20/18 [History] Escitalopram [Lexapro] 20 mg PO DAILY 05/20/18 [History] Folic Acid 3 mg PO DAILY 05/20/18 [History] Gabapentin [Neurontin] 300 mg PO BID 05/20/18 [History] Omeprazole [PriLOSEC] 40 mg PO DAILY 05/20/18 [History] Oxybutynin [Ditropan] 5 mg PO BID 05/20/18 [History] Trazodone HCl 150 mg PO HS 05/20/18 [History] Warfarin Sodium 5 mg PO SUTHSA 05/20/18 [History] Warfarin Sodium 7.5 mg PO MOTUWEFR 05/20/18 [History] HYDROcodone/Acet 5/325 mg [[place] 5-325 mg] 1 tab PO Q6H PRN 05/23/18 [History] Allergies/Adverse Reactions: Allergy/AdvReac Type Severity Reaction Status Date / Time Hydromorphone [From Dilaudid] Allergy Hallucinati Verified 05/20/18 08:03 ng venom-honey bee Allergy Difficulty Verified 05/20/18 08:03 [bee venom (honey bee)] Breathing Date of admission: 05/25/18 10:49 Primary care physician: Arnaldo De La Rosa MD Consults: 05/23/18 17:31 Consult to Occupational Therapy [CONS] Routine Comment: Evaluate, develop and implement POC Reason for Consult: Unable to ambulate s/p fall Does patient have active BEDREST order?: No Is patient medically & hemodynamically stable?: Yes Consult to Physical Therapy [CONS] Routine Comment: Evaluate, develop and implement POC Reason for Consult: Unable to ambulate Does patient have active BEDREST order?: No Is patient medically & hemodynamically stable?: Yes 05/24/18 08:39 Consult to Orthopedic Surgery [CONS] Stat Consulting Provider: [facility] Reason for Consult: Acute R malleolar fracture Call Completed: Yes 05/27/18 07:23 Consult to Health And Wellness Coordinator [CONS] Routine Reason for SW Consult: needs ecf - Constitutional Vitals: Temp Pulse Resp BP Pulse Ox 98.6 F 96 16 121/74 90 05/27/18 07:28 05/27/18 07:28 05/27/18 07:28 05/27/18 07:28 05/27/18 07:28 General appearance: Present: A&O X 3, pleasant, no acute distress, obese - Patient Status Condition: Fair - Discharge Instructions Follow Up With: Arnaldo De La Rosa MD [Primary Care Provider] -
--- NOTE | 2018-05-27 09:36 | Physician Discharge Referral ---
ExtendedCare Referral Info Provider in Charge after Transfer: PCP Institutional Level of Care: Skilled - Diagnosis (1) Unable to ambulate Status: Acute (2) Fall Status: Acute (3) Anemia Status: Chronic (4) Atrial fibrillation Status: Chronic (5) H/O mitral valve replacement with mechanical valve Status: Chronic (6) Right ankle swelling Status: Acute (7) DVT prophylaxis Status: Acute (8) Malleolar fracture Status: Acute - Transfer Medications Home Medications: Aspirin [Adult Aspirin Regimen] 81 mg PO DAILY 05/20/18 [History] Atenolol [Tenormin] 50 mg PO DAILY 05/20/18 [History] Atorvastatin [Lipitor] 40 mg PO DAILY 05/20/18 [History] Buspirone HCl [Buspar] 60 mg PO DAILY 05/20/18 [History] Chlorthalidone 12.5 mg PO DAILY 05/20/18 [History] Escitalopram [Lexapro] 20 mg PO DAILY 05/20/18 [History] Folic Acid 3 mg PO DAILY 05/20/18 [History] Gabapentin [Neurontin] 300 mg PO BID 05/20/18 [History] Omeprazole [PriLOSEC] 40 mg PO DAILY 05/20/18 [History] Oxybutynin [Ditropan] 5 mg PO BID 05/20/18 [History] Trazodone HCl 150 mg PO HS 05/20/18 [History] Warfarin Sodium 5 mg PO SUTHSA 05/20/18 [History] Warfarin Sodium 7.5 mg PO MOTUWEFR 05/20/18 [History] HYDROcodone/Acet 5/325 mg [[place] 5-325 mg] 1 tab PO Q6H PRN 05/23/18 [History] Allergies/Adverse Reactions: Allergy/AdvReac Type Severity Reaction Status Date / Time Hydromorphone [From Dilaudid] Allergy Hallucinati Verified 05/20/18 08:03 ng venom-honey bee Allergy Difficulty Verified 05/20/18 08:03 [bee venom (honey bee)] Breathing - Respiratory Orders Smoking Cessation: Smoking cessation has been advised. For more information, call the [place] Tobacco Quit Line at 3-653-ZSPO-NOW. CERTIFICATION: I certify that the transfer of the above named patient to an Extended Care Facility is necessary for the continuing treatment of the diagnosis listed. The above information is true and accurate reflection of patient's current condition. Confidential - Redisclosure prohibited without a patient's written consent.
[2018-05-27] MEDS: *HR* HYDROcodone/Acet 5/325 mg TABLET PO PRN ×2 (10:02→20:45)
--- NOTE | 2018-05-27 10:10 | Internal Med Progress Note ---
Hospitalist Progress Note - Encounter Date of Encounter: 05/27/18 Time of Encounter: 10:10 - Subjective Interval History: Seen and evaluated at bedside s/p R knee arthroscopy and meniscal repair 05/20, admitted following a mechanical fall with R foot malleolar fracture The patient reports he has some improvement in pain and swelling but was due for his pain meds at my time of eval His states "Is anyone concerned about his mental health?". On further inquiry, she reports he has had depression since R shoulder surgery 2 years ago, he recently saw his psychiatrist prior to admission. Patient is not confused, he is not suicidal or psychotic, is reassured to follow up with Psych as out- patient Patient denies SI/HI and states "I am okay" PTOT recommends swing bed, awaiting placement, patient has agreed to be placed he is otherwise stable INR 2.7 - Exam Vitals: Temp Pulse Resp BP Pulse Ox 98.6 F 96 16 121/74 90 05/27/18 07:28 05/27/18 07:28 05/27/18 07:28 05/27/18 07:28 05/27/18 07:28 Exam: Vitals stable, afebrile Gen: Morbidly obese, not in distress HEENT: Moist oral mucosa, not pale, anicteric Chest: Equal chest movt bilaterally Resp: CTAB, no added sounds Heart: S1, S2 only, no m/g/r Abdomen: Soft, not tender Extremities:Right ankle in brace. Left extremities unremarkable - Assessment and Plan (1) Unable to ambulate Current Visit: Yes Status: Acute Assessment and Plan: Following fall with acute R posterior malleolar fracture Ortho eval noted and appreciated Prelim doppler study result noted with no DVT Pain control PTOT eval noted, for swing bed (2) Fall Current Visit: Yes Status: Acute Assessment and Plan: Fall precautions PTOT eval (3) Anemia Current Visit: Yes Status: Chronic Assessment and Plan: Chronic, stable, Hb pre op was 8.9 MCV is low, at 74.9, previosuly anemia was normocytic iron level is low, continue on supplements Type and screen Patient is asymptomatic Continue to monitor (4) Atrial fibrillation Current Visit: Yes Status: Chronic Assessment and Plan: HR controlled on current regimen INR is 2.7, goal is 2.5-3.5 due to MVR, continue warfarin, continue to monitor INR (5) H/O mitral valve replacement with mechanical valve Current Visit: Yes Status: Chronic Assessment and Plan: Chronic, asymptomatic, on warfarin, continue same (6) Right ankle swelling Current Visit: Yes Status: Acute Assessment and Plan: Secondary to fracture of R malleollus Improved (7) DVT prophylaxis Current Visit: Yes Status: Acute Assessment and Plan: Anticoagulated on warfarin, INR is therapeutic (8) Malleolar fracture Current Visit: Yes Status: Acute Assessment and Plan: Ortho called and consulted, input appreciated, conservative management and PT - Time Spent with Patient Total time spent is greater than 50% in coordination of care (as documented) at patient's floor/unit and/or counseling patient: Plan of Care Discussed with: patient Internal Medicine: Result - Labs CBC & Chem 7: 05/27/18 03:50 05/26/18 05:32 Labs: Short CBC 05/27/18 Range/Units 03:50 WBC 6.2 (4.3-11.1) K/mcL Hgb 8.5 L (12.9-16.9) g/dL Hct 29.4 L (37.5-50.1) % Plt Count 222 (140-400) K/mcL Neutrophils # 4.5 (1.6-8.9) K/mcL - ABG Interpretation ABG results: PT/INR, D-dimer PT 30.6 Seconds (9.4-12.1) H 05/27/18 03:50 Consult Discharge Plan - Plan Referrals: Arnaldo De La Rosa MD [Primary Care Provider] - Prescriptions: HYDROcodone/Acet 5/325 mg [[place] 5-325 mg] 1 tab PO Q6H PRN 3 Days #12 tablet PRN Reason: Pain (2) Fall Qualifiers: Encounter type: initial encounter Qualified Code(s): W19.XXXA - Unspecified fall, initial encounter (3) Anemia Qualifiers: Anemia type: unspecified type Qualified Code(s): D64.9 - Anemia, unspecified (4) Atrial fibrillation Qualifiers: Atrial fibrillation type: chronic Qualified Code(s): I48.2 - Chronic atrial fibrillation (8) Malleolar fracture Qualifiers: Encounter type: initial encounter Fracture type: closed Laterality: right Qualified Code(s): S82.891A - Other fracture of right lower leg, initial encounter for closed fracture
[2018-05-27] MEDS: *HR* Warfarin 5 MG TABLET PO SCH (17:37)
[2018-05-27] MEDS ORDERED: Warfarin perPT PO PRN (18:00)
[2018-05-27] MEDS: traZODone 50 MG TABLET PO SCH (20:45)
[2018-05-28 05:36] LABS: INR 2.1; Prothrombin Time 23.3 Seconds (9.4-12.1)
[2018-05-28] MEDS: Gabapentin 300 MG CAPSULE PO SCH (08:40)
[2018-05-28] MEDS: Folic Acid 1 MG TABLET PO SCH (08:41)
[2018-05-28] MEDS: Aspirin Enteric Coated 81 MG Tablet PO SCH (08:41)
--- NOTE | 2018-05-28 10:53 | Discharge Summary ---
Orders not resulted at time of discharge: Pending orders 05/29/18 04:00 PT/INR [Prothrombin Time INR] [COAG] AM 0400 05/30/18 04:00 PT/INR [Prothrombin Time INR] [COAG] AM 0400 05/31/18 04:00 PT/INR [Prothrombin Time INR] [COAG] AM 0400 06/01/18 04:00 PT/INR [Prothrombin Time INR] [COAG] AM 0400 Date of Encounter: 05/28/18 Time of Encounter: 10:50 - Discharge Diagnosis (1) Fall Priority: Primary Status: Acute Qualifiers: Encounter type: initial encounter Qualified Code(s): W19.XXXA - Unspecified fall, initial encounter (2) Malleolar fracture Priority: Primary Status: Acute Qualifiers: Encounter type: initial encounter Fracture type: closed Laterality: left Qualified Code(s): S82.892A - Other fracture of left lower leg, initial encounter for closed fracture (3) Anemia Priority: Secondary Status: Chronic Qualifiers: Anemia type: iron deficiency Qualified Code(s): D50.9 - Iron deficiency anemia, unspecified (4) Atrial fibrillation Priority: Secondary Status: Chronic Qualifiers: Atrial fibrillation type: chronic Qualified Code(s): I48.2 - Chronic atrial fibrillation (5) H/O mitral valve replacement with mechanical valve Priority: Secondary Status: Chronic (6) HTN (hypertension) Priority: Secondary Status: Chronic Qualifiers: Hypertension type: essential hypertension Qualified Code(s): I10 - Essential (primary) hypertension (7) HLD (hyperlipidemia) Priority: Secondary Status: Chronic Qualifiers: Hyperlipidemia type: unspecified Qualified Code(s): E78.5 - Hyperlipidemia, unspecified (8) GERD (gastroesophageal reflux disease) Priority: Secondary Status: Chronic Qualifiers: Esophagitis presence: esophagitis presence not specified Qualified Code(s): K21.9 - Gastro-esophageal reflux disease without esophagitis (9) Depression with anxiety Priority: Secondary Status: Chronic Hospital course: HOSPITAL COURSE: The patient is a 68-year-old man. Shortly before this hospitalization she experienced a fall sustaining a closed fracture of posterior portion of distal right tibia. We presented him to orthopedic surgery. They advised non-surgical treatment. The patient will be using a special brace applied to right foot/ankle. He has iron deficiency anemia. He may benefit from workup for this problem in outpatient settings. The patient has underlying atrial fibrillation/carries mechanical mitral valve. He is on Coumadin. CONDITION AT DISCHARGE: The patient feels good. The pain in the area of right ankle is mild. He is able to ambulate on his own. Skin: Free of rash and discoloration. Respiratory: Normal breath sounds with no crackles and wheezes bilaterally. CV: Heart is regular with no gallop or murmur. GI: Abdomen is flat and soft with no palpable mass or visceromegaly. Neuro exam: There is no focal deficits. Normal speech, swallowing and gait. SEE DISCHARGE ORDERS/MEDICATIONS. The patient goes to ECF. Discharge discussed with: patient, family, nurse, social work - Time Spent with Patient Total time spent providing and/or coordinating discharge services: Greater than 30 minutes (45 minutes..) - Discharge Medications Prescriptions: HYDROcodone/Acet 5/325 mg [[place] 5-325 mg] 1 tab PO Q6H PRN 3 Days #12 tablet PRN Reason: Pain Warfarin [Coumadin] 7.5 mg PO 1800 #30 tablet Home Medications: Aspirin [Adult Aspirin Regimen] 81 mg PO DAILY 05/20/18 [History] Atenolol [Tenormin] 50 mg PO DAILY 05/20/18 [History] Atorvastatin [Lipitor] 40 mg PO DAILY 05/20/18 [History] Buspirone HCl [Buspar] 60 mg PO DAILY 05/20/18 [History] Chlorthalidone 12.5 mg PO DAILY 05/20/18 [History] Escitalopram [Lexapro] 20 mg PO DAILY 05/20/18 [History] Folic Acid 3 mg PO DAILY 05/20/18 [History] Gabapentin [Neurontin] 300 mg PO BID 05/20/18 [History] Omeprazole [PriLOSEC] 40 mg PO DAILY 05/20/18 [History] Oxybutynin [Ditropan] 5 mg PO BID 05/20/18 [History] Trazodone HCl 150 mg PO HS 05/20/18 [History] Docusate [Colace] 100 mg PO BID capsule 05/27/18 [Rx] Ferrous Sulfate 325 mg PO BIDWM tablet 05/27/18 [Rx] HYDROcodone/Acet 5/325 mg [[place] 5-325 mg] 1 tab PO Q6H PRN 3 Days #12 tablet 05/27/18 [Rx] Enoxaparin [Lovenox *PHARMACY WT BASED*] 90 mg SQ Q12H mg 05/28/18 [Rx] Warfarin [Coumadin] 7.5 mg PO 1800 #30 tablet 05/28/18 [Rx] Allergies/Adverse Reactions: Allergy/AdvReac Type Severity Reaction Status Date / Time venom-honey bee Allergy Difficulty Verified 05/20/18 08:03 [bee venom (honey bee)] Breathing Hydromorphone [From Dilaudid] AdvReac Hallucinati Verified 05/27/18 10:30 ng Date of admission: 05/25/18 10:49 Primary care physician: Arnaldo De La Rosa MD Consults: 05/23/18 17:31 Consult to Occupational Therapy [CONS] Routine Comment: Evaluate, develop and implement POC Reason for Consult: Unable to ambulate s/p fall Does patient have active BEDREST order?: No Is patient medically & hemodynamically stable?: Yes Consult to Physical Therapy [CONS] Routine Comment: Evaluate, develop and implement POC Reason for Consult: Unable to ambulate Does patient have active BEDREST order?: No Is patient medically & hemodynamically stable?: Yes 05/24/18 08:39 Consult to Orthopedic Surgery [CONS] Stat Consulting Provider: [facility] Reason for Consult: Acute R malleolar fracture Call Completed: Yes 05/27/18 07:23 Consult to Supervisor [facility]ers [CONS] Routine Reason for SW Consult: needs ecf Discharging clinician: Florentino Bender Anticipated date of discharge: 05/28/18 - Constitutional Vitals: Temp Pulse Resp BP Pulse Ox 97.7 F 77 20 126/72 92 05/28/18 06:52 05/28/18 06:52 05/28/18 06:52 05/28/18 06:52 05/28/18 08:47 General appearance: Present: A&O X 3, pleasant, no acute distress, answers questions appropriately Exam: xx - Patient Status Disposition: Transfer SNF Condition: Fair Functional capacity at discharge: uses cane/walker (a walker/assistance; ASO ankle brace applied to to right foot/ankle (for next 4-6 weeks)..) - Discharge Instructions Follow Up With: Arnaldo De La Rosa MD [Primary Care Provider] - Additional Instructions: FOLLOW-UP WITH ORTHO SURGERY -- IN 2-3 WEEKS.. PRO TIME -- DAILY -- TO THE DAY, WHEN IT IS 2.5-3.5; THEN EOD X2; THEN, MONTHLY.. - Diet and Activity Activity: ambulate only with your walker (assistance needed..) Diet: low fat, low cholesterol - VTE Reasons for not Prescribing Prophylaxis: Not indicated-Anticoagulated or INR therapeutic Deep Vein Thrombosis/Pulmonary Embolism Present on Admission: No
[2018-05-28 10:59] VITALS: BP 107/50
[2018-05-28] MEDS ORDERED: *HR* Enoxaparin 100 MG/ML SYRINGE SQ SCH (11:00)
--- NOTE | 2018-05-28 11:21 | Physician Discharge Referral ---
ExtendedCare Referral Info Transfer To: [facility] Provider in Charge: Royal RIVERA MD Provider in Charge after Transfer: Other (AN [facility] PHYSICIAN..) Institutional Level of Care: Skilled - Diagnosis (1) Fall Priority: Primary Status: Acute (2) Malleolar fracture Priority: Primary Status: Acute (3) Anemia Priority: Secondary Status: Chronic (4) Atrial fibrillation Priority: Secondary Status: Chronic (5) H/O mitral valve replacement with mechanical valve Priority: Secondary Status: Chronic (6) HTN (hypertension) Priority: Secondary Status: Chronic (7) HLD (hyperlipidemia) Priority: Secondary Status: Chronic (8) GERD (gastroesophageal reflux disease) Priority: Secondary Status: Chronic (9) Depression with anxiety Priority: Secondary Status: Chronic Prognosis: Fair Aware of Diagnosis: Patient, Family Aware of Prognosis: Patient, Family - Transfer Medications Prescriptions: HYDROcodone/Acet 5/325 mg [[place] 5-325 mg] 1 tab PO Q6H PRN 3 Days #12 tablet PRN Reason: Pain Warfarin [Coumadin] 7.5 mg PO 1800 #30 tablet Home Medications: Aspirin [Adult Aspirin Regimen] 81 mg PO DAILY 05/20/18 [History] Atenolol [Tenormin] 50 mg PO DAILY 05/20/18 [History] Atorvastatin [Lipitor] 40 mg PO DAILY 05/20/18 [History] Buspirone HCl [Buspar] 60 mg PO DAILY 05/20/18 [History] Chlorthalidone 12.5 mg PO DAILY 05/20/18 [History] Escitalopram [Lexapro] 20 mg PO DAILY 05/20/18 [History] Folic Acid 3 mg PO DAILY 05/20/18 [History] Gabapentin [Neurontin] 300 mg PO BID 05/20/18 [History] Omeprazole [PriLOSEC] 40 mg PO DAILY 05/20/18 [History] Oxybutynin [Ditropan] 5 mg PO BID 05/20/18 [History] Trazodone HCl 150 mg PO HS 05/20/18 [History] Docusate [Colace] 100 mg PO BID capsule 05/27/18 [Rx] Ferrous Sulfate 325 mg PO BIDWM tablet 05/27/18 [Rx] HYDROcodone/Acet 5/325 mg [[place] 5-325 mg] 1 tab PO Q6H PRN 3 Days #12 tablet 05/27/18 [Rx] Enoxaparin [Lovenox *PHARMACY WT BASED*] 90 mg SQ Q12H mg 05/28/18 [Rx] Warfarin [Coumadin] 7.5 mg PO 1800 #30 tablet 05/28/18 [Rx] Allergies/Adverse Reactions: Allergy/AdvReac Type Severity Reaction Status Date / Time venom-honey bee Allergy Difficulty Verified 05/20/18 08:03 [bee venom (honey bee)] Breathing Hydromorphone [From Dilaudid] AdvReac Hallucinati Verified 05/27/18 10:30 ng - Respiratory Orders None Smoking Cessation: Smoking cessation has been advised. For more information, call the [place] Tobacco Quit Line at 0-701-DVRY-NOW. - Advance Directives Code Status: Full Code - Mobility Orders Other (A WALKER AND ASSISTANCE..) - Rehabiliation Orders Rehab Potential: Fair - Diet Orders Cardiac CERTIFICATION: I certify that the transfer of the above named patient to an Extended Care Facility is necessary for the continuing treatment of the diagnosis listed. The above information is true and accurate reflection of patient's current condition. Confidential - Redisclosure prohibited without a patient's written consent.
== END 2018-05-28 13:49 | DRG 563 ==
LOC: SUATTDRO → 3NENU 14:36 → EMEROOARM 14:36 → SUATTDRO 17:23 → 3NENU 19:08 → SUATTDRO 05-25 10:49 → 2ANU 05-26 18:39
PROVIDERS: ADMIT Internal Medicine; ATTEND Internal Medicine

== ENCOUNTER 2020-05-03 09:56 | Inpatient (IN) ==
[2020-05-03] MEDS ORDERED: 0.9 % Sodium Chloride 1,000 ML IVC ONE (10:01)
[2020-05-03 10:27] LABS: Hemoglobin 6.2 g/dL (12.9-16.9)
[2020-05-03 10:28] LABS: Basophils % 0.6 %; Eosinophils # 0.1 K/mcL (0.0-0.6); Eosinophils % 1.5 %; Hematocrit 23.8 % (37.5-50.1); Immature Granulocytes % 0.4 % (0-4); Lymphocytes # 0.4 K/mcL (0.6-4.6); Lymphocytes % 8.4 %; Mean Corpuscular HGB Conc 26.1 g/dL (31.6-35.5); Mean Corpuscular Hemoglobin 19.1 pg (28.0-33.3); Mean Corpuscular Volume 73.5 fL (83.0-100.0); Monocytes # 0.4 K/mcL (0.0-1.3); Neutrophils # 3.7 K/mcL (1.6-8.9); Platelet Count 236 K/mcL (140-400); Red Blood Count 3.24 M/mcL (4.19-5.50); Red Cell Distribution Width 18.3 % (11.5-14.5); Segmented Neutrophils % 81.1 %; White Blood Count 4.6 K/mcL (4.3-11.1)
[2020-05-03 10:31] LABS: Prothrombin Time 33.3 Seconds (9.4-12.1)
[2020-05-03 11:04] LABS: Anisocytosis 1+ (Not Present); Hypochromasia Present (Not Present); Microcytosis Present (Not Present); Platelet Estimate Normal (Normal)
[2020-05-03 11:11] LABS: Alanine Aminotransferase 3 Units/L (7-52); Albumin 2.9 g/dL (3.5-5.7); Albumin/Globulin Ratio 0.9 (1.1-2.2); Alkaline Phosphatase 99 Units/L (34-104); Aspartate Amino Transferase 24 Units/L (13-39); BUN/Creatinine Ratio 20 (6-26); Bilirubin,Direct 0.2 mg/dL (0.0-0.2); Bilirubin,Indirect 0.6 mg/dL (0.0-1.0); Bilirubin,Total 0.8 mg/dL (0.3-1.0); Blood Urea Nitrogen 19 mg/dL (8-23); Carbon Dioxide 20 mEq/L (23-29); Chloride 105 mEq/L (98-107); Glucose 129 mg/dL (70-105); Magnesium 1.6 mg/dL (1.6-2.6); Osmolality,Calculated 286 (280-300); Potassium 3.3 mEq/L (3.5-5.1); Sodium 136 mEq/L (136-145); Total Protein 6.1 g/dL (6.4-8.9); eGFR For African Americans > 60 (> 60); eGFR For Non-African Americans > 60 (> 60)
[2020-05-03 11:12] LABS: Globulin 3.2 g/dL (2.4-3.5); Troponin I < 0.03 ng/mL (< 0.04)
[2020-05-03] MEDS ORDERED: Potassium Chloride 40 MEQ, Lidocaine 1% 2 ML in 0.9 % Sodium Chloride 500 ML IVPB ONE (12:07)
[2020-05-03] MEDS: 0.9 % Sodium Chloride 1,000 ML IVC SCH ×2 (12:20→16:34)
[2020-05-03 12:25] LABS: Bilirubin,Urine Negative (Negative); Blood,Urine Negative (Negative); Clarity,Urine Clear (Clear); Color,Urine Yellow (Yellow); Glucose,Urine (UA) Normal (Normal); Ketones,Urine Negative (Negative); Leukocyte Esterase,Urine Negative (Negative); Nitrite,Urine Negative (Negative); Protein,Urine Trace mg/dL (Neg-Trace); Specific Gravity,Urine > 1.030 (1.010-1.025); Urobilinogen,Urine Normal (Normal)
[2020-05-03] MEDS ORDERED: *HR* Promethazine 25 MG/ML VIAL IVP PRN (12:55)
[2020-05-03] MEDS ORDERED: 0.9 % Sodium Chloride 500 ML ONE (13:24)
[2020-05-03] MEDS ORDERED: Pantoprazole 40 MG VIAL IVP ONE (13:37)
[2020-05-03] MEDS ORDERED: Gadolinium Contrast Agent (WT Based) IV PRN (13:43)
[2020-05-03] MEDS ORDERED: Morphine Sulfate 2 MG/ML SYRINGE IVP ONE (15:27)
[2020-05-03] MEDS: Pantoprazole 40 MG VIAL IVP SCH (16:19)
[2020-05-03 16:50] LABS: Platelet Count 248 K/mcL (140-400)
[2020-05-03 16:52] LABS: Hematocrit 30.1 % (37.5-50.1); Hemoglobin 8.2 g/dL (12.9-16.9); Mean Corpuscular HGB Conc 27.2 g/dL (31.6-35.5); Mean Corpuscular Hemoglobin 21.1 pg (28.0-33.3); Mean Corpuscular Volume 77.6 fL (83.0-100.0); Mean Platelet Volume 8.9 fL (9.4-12.4); Red Blood Count 3.88 M/mcL (4.19-5.50); Red Cell Distribution Width 19.2 % (11.5-14.5); White Blood Count 5.7 K/mcL (4.3-11.1)
[2020-05-03] MEDS ORDERED: SODIUM CHLORIDE/NAHCO3/KCL/PEG 4,000 ML SOLN.RECON PO ONE (17:00)
[2020-05-03 17:21] LABS: Heparin anti-factor XA UFH < 0.04 IU/mL (0.30-0.70); INR 2.6; Prothrombin Time 29.5 Seconds (9.4-12.1)
[2020-05-03 19:52] LABS: Hematocrit 29.5 % (37.5-50.1); Hemoglobin 8.1 g/dL (12.9-16.9); Mean Corpuscular HGB Conc 27.5 g/dL (31.6-35.5); Mean Corpuscular Hemoglobin 20.7 pg (28.0-33.3); Mean Corpuscular Volume 75.3 fL (83.0-100.0); Platelet Count 221 K/mcL (140-400); Red Blood Count 3.92 M/mcL (4.19-5.50); Red Cell Distribution Width 18.8 % (11.5-14.5); White Blood Count 6.1 K/mcL (4.3-11.1)
[2020-05-03] MEDS ORDERED: Heparin 25,000UNIT/250ML 1/2NS 25,000 UNIT/250 ML IV.SOLN IVC SCH (20:00)
[2020-05-03] MEDS ORDERED: *HR* Heparin 5,000 UNIT/ML VIAL IVP ONE (20:00)
[2020-05-03] MEDS ORDERED: *HR* Heparin 5,000 UNIT/ML VIAL IVP PRN ×2 (20:00)
[2020-05-03] MEDS ORDERED: Acetaminophen IV 500 MG/50 ML INFUS..BTL IVPB ONE (21:08)
[2020-05-03] MEDS: *HR* OxyCODONE Immed Rel 5 MG TABLET PO PRN (23:33)
[2020-05-04] MEDS: 0.9 % Sodium Chloride 1,000 ML IVC SCH ×2 (03:16→13:42)
[2020-05-04 05:18] LABS: Prothrombin Time 44.3 Seconds (9.4-12.1)
[2020-05-04 05:44] LABS: BUN/Creatinine Ratio 15 (6-26); Blood Urea Nitrogen 10 mg/dL (8-23); Calcium 6.9 mg/dL (8.6-10.3); Carbon Dioxide 23 mEq/L (23-29); Chloride 114 mEq/L (98-107); Glucose 94 mg/dL (70-105); Magnesium 1.4 mg/dL (1.6-2.6); Osmolality,Calculated 293 (280-300); Phosphorous 2.6 mg/dL (2.7-4.5); Potassium 3.3 mEq/L (3.5-5.1); Sodium 142 mEq/L (136-145); eGFR For African Americans > 60 (> 60); eGFR For Non-African Americans > 60 (> 60)
[2020-05-04] MEDS: Pantoprazole 40 MG VIAL IVP SCH ×2 (06:16→18:00)
[2020-05-04] MEDS: *HR* OxyCODONE Immed Rel 5 MG TABLET PO PRN ×2 (07:57→18:00)
[2020-05-04 10:29] LABS: Red Cell Distribution Width 18.6 % (11.5-14.5)
[2020-05-04 10:30] LABS: Hematocrit 24.1 % (37.5-50.1); Hemoglobin 6.6 g/dL (12.9-16.9); Mean Corpuscular HGB Conc 27.4 g/dL (31.6-35.5); Mean Corpuscular Hemoglobin 20.6 pg (28.0-33.3); Mean Corpuscular Volume 75.3 fL (83.0-100.0); Mean Platelet Volume 8.9 fL (9.4-12.4); Platelet Count 205 K/mcL (140-400); White Blood Count 4.5 K/mcL (4.3-11.1)
[2020-05-04 12:37] LABS: Adenovirus Not Detected (Not Detect); Bordetella Pertussis Not Detected (Not Detect); Chlamydophila pneumoniae Not Detected (Not Detect); Coronavirus 229E Not Detected (Not Detect); Coronavirus HKU1 Not Detected (Not Detect); Coronavirus NL63 Not Detected (Not Detect); Coronavirus OC43 Not Detected (Not Detect); Human Metapneumovirus Not Detected (Not Detect); Human Rhinovirus/Enterovirus Not Detected (Not Detect); Influenza A Subtype 2009 H1 Not Detected (Not Detect); Influenza B Not Detected (Not Detect); Mycoplasma pneumoniae Not Detected (Not Detect); Parainfluenza Virus 1 Not Detected (Not Detect); Parainfluenza Virus 2 Not Detected (Not Detect); Parainfluenza Virus 3 Not Detected (Not Detect); Parainfluenza Virus 4 Not Detected (Not Detect); Respiratory Syncytial Virus Not Detected (Not Detect); SARS-CoV-2 Not Detected (Not Detect)
[2020-05-04 15:07] LABS: Immature Granulocytes % 0.4 % (0-4); Red Cell Distribution Width 18.8 % (11.5-14.5)
[2020-05-04 15:09] LABS: Basophils % 0.6 %; Eosinophils % 0.8 %; Hematocrit 26.2 % (37.5-50.1); Hemoglobin 7.3 g/dL (12.9-16.9); Lymphocytes # 0.4 K/mcL (0.6-4.6); Lymphocytes % 8.6 %; Mean Corpuscular HGB Conc 27.9 g/dL (31.6-35.5); Mean Corpuscular Hemoglobin 21.3 pg (28.0-33.3); Mean Corpuscular Volume 76.4 fL (83.0-100.0); Mean Platelet Volume 8.9 fL (9.4-12.4); Monocytes # 0.4 K/mcL (0.0-1.3); Monocytes % 7.4 %; Neutrophils # 4.2 K/mcL (1.6-8.9); Platelet Count 228 K/mcL (140-400); Red Blood Count 3.43 M/mcL (4.19-5.50); Segmented Neutrophils % 82.2 %; White Blood Count 5.1 K/mcL (4.3-11.1)
[2020-05-04 16:12] LABS: Hypochromasia Present (Not Present); Ovalocytes 1+ (Not Present)
[2020-05-04 16:13] LABS: Anisocytosis 1+ (Not Present); Microcytosis Present (Not Present); Platelet Estimate Normal (Normal)
[2020-05-04] MEDS ORDERED: *HR* HYDROcodone/Acet 5/325 mg TABLET PO PRN (17:26)
[2020-05-04] MEDS ORDERED: 0.9 % Sodium Chloride 250 ML ONE (17:49)
[2020-05-04] MEDS ORDERED: atenoloL 50 MG TABLET PO SCH (18:00)
[2020-05-04 20:09] LABS: Acinetobacter baumannii by PCR Not Detected (Not Detect); Candida albicans by PCR Not Detected (Not Detect); Candida glabrata by PCR Not Detected (Not Detect); Candida krusei by PCR Not Detected (Not Detect); Candida parapsilosis by PCR Not Detected (Not Detect); Candida tropicalis by PCR Not Detected (Not Detect); Enterobacter cloacae Cmplx PCR Not Detected (Not Detect); Enterobacteriaceae by PCR Not Detected (Not Detect); Enterococcus by PCR Not Detected (Not Detect); Escherichia coli by PCR Not Detected (Not Detect); Klebsiella oxytoca by PCR Not Detected (Not Detect); Klebsiella pneumoniae by PCR Not Detected (Not Detect); Proteus by PCR Not Detected (Not Detect); Pseudomonas aeruginosa by PCR Not Detected (Not Detect); Serratia marcescens by PCR Not Detected (Not Detect); Staphylococcus aureus by PCR Not Detected (Not Detect); Staphylococcus by PCR Not Detected (Not Detect); Streptococcus agalactiae(B)PCR Not Detected (Not Detect); Streptococcus by PCR DETECTED (Not Detect); Streptococcus pneumoniae PCR Not Detected (Not Detect); Streptococcus pyogenes (A) PCR Not Detected (Not Detect); blaKPC Carbapenem-Resist Gene Not Detected (Not Detect); mecA Methicillin-Resist Gene Not Detected (Not Detect); vanA/B Vancomycin-Resist Genes Not Detected (Not Detect)
[2020-05-04] MEDS: traZODone 50 MG TABLET PO SCH (20:46)
[2020-05-05] MEDS: Cefepime HCl 2,000 MG in Water for inj. (sterile) 20 ML IVP SCH ×3 (00:52→16:16)
[2020-05-05] MEDS: 0.9 % Sodium Chloride 1,000 ML IVC SCH ×3 (04:24→21:10)
[2020-05-05 05:02] LABS: Immature Granulocytes % 0.4 % (0-4)
[2020-05-05 05:03] LABS: Basophils % 0.2 %; Eosinophils # 0.1 K/mcL (0.0-0.6); Eosinophils % 2.3 %; Hemoglobin 9.2 g/dL (12.9-16.9); Lymphocytes # 0.4 K/mcL (0.6-4.6); Lymphocytes % 8.5 %; Mean Corpuscular HGB Conc 27.9 g/dL (31.6-35.5); Mean Corpuscular Hemoglobin 22.2 pg (28.0-33.3); Mean Corpuscular Volume 79.5 fL (83.0-100.0); Mean Platelet Volume 8.9 fL (9.4-12.4); Monocytes # 0.4 K/mcL (0.0-1.3); Monocytes % 7.9 %; Neutrophils # 3.9 K/mcL (1.6-8.9); Platelet Count 237 K/mcL (140-400); Red Blood Count 4.15 M/mcL (4.19-5.50); Segmented Neutrophils % 80.7 %; White Blood Count 4.8 K/mcL (4.3-11.1)
[2020-05-05 05:04] LABS: INR 2.3; Prothrombin Time 25.5 Seconds (9.4-12.1)
[2020-05-05 05:20] LABS: Albumin 2.9 g/dL (3.5-5.7); Albumin/Globulin Ratio 0.9 (1.1-2.2); BUN/Creatinine Ratio 11 (6-26); Bilirubin,Direct 0.4 mg/dL (0.0-0.2); Bilirubin,Indirect 0.8 mg/dL (0.0-1.0); Bilirubin,Total 1.2 mg/dL (0.3-1.0); Blood Urea Nitrogen 7 mg/dL (8-23); Calcium 8.3 mg/dL (8.6-10.3); Carbon Dioxide 26 mEq/L (23-29); Chloride 109 mEq/L (98-107); Globulin 3.3 g/dL (2.4-3.5); Glucose 115 mg/dL (70-105); Osmolality,Calculated 287 (280-300); Potassium 3.6 mEq/L (3.5-5.1); Sodium 139 mEq/L (136-145); Total Protein 6.2 g/dL (6.4-8.9); eGFR For African Americans > 60 (> 60); eGFR For Non-African Americans > 60 (> 60)
[2020-05-05 05:27] LABS: Hypochromasia Present (Not Present); Ovalocytes 1+ (Not Present)
[2020-05-05 05:28] LABS: Anisocytosis 1+ (Not Present); Microcytosis Present (Not Present); Platelet Estimate Normal (Normal); Poikilocytosis 1+ (Not Present)
[2020-05-05] MEDS: Pantoprazole 40 MG VIAL IVP SCH ×2 (05:52→16:14)
[2020-05-05] MEDS: Folic Acid 1 MG TABLET PO SCH (08:11)
[2020-05-05] MEDS: Aspirin Enteric Coated 81 MG Tablet PO SCH (08:11)
[2020-05-05] MEDS: *HR* OxyCODONE Immed Rel 5 MG TABLET PO PRN (08:13)
[2020-05-05] MEDS: tiZANidine 4 MG TABLET PO PRN (08:13)
[2020-05-05] MEDS ORDERED: Heparin 25,000UNIT/250ML 1/2NS 25,000 UNIT/250 ML IV.SOLN IVC SCH (11:58)
[2020-05-05] MEDS: atenoloL 50 MG TABLET PO SCH (16:17)
[2020-05-05] MEDS ORDERED: SODIUM CHLORIDE/NAHCO3/KCL/PEG 4,000 ML SOLN.RECON PO ONE (17:00)
[2020-05-05] MEDS: traZODone 50 MG TABLET PO SCH (21:12)
[2020-05-06] MEDS: Cefepime HCl 2,000 MG in Water for inj. (sterile) 20 ML IVP SCH ×3 (00:16→17:09)
[2020-05-06] MEDS: Pantoprazole 40 MG VIAL IVP SCH ×2 (05:05→17:09)
[2020-05-06] MEDS: 0.9 % Sodium Chloride 1,000 ML IVC SCH (05:05)
[2020-05-06 08:04] LABS: Hemoglobin 8.6 g/dL (12.9-16.9); INR 2.6; Mean Platelet Volume 8.5 fL (9.4-12.4); Prothrombin Time 28.9 Seconds (9.4-12.1)
[2020-05-06 08:05] LABS: Basophils % 0.6 %; Eosinophils # 0.2 K/mcL (0.0-0.6); Eosinophils % 4.3 %; Hematocrit 30.1 % (37.5-50.1); Lymphocytes # 0.4 K/mcL (0.6-4.6); Lymphocytes % 10.6 %; Mean Corpuscular HGB Conc 28.6 g/dL (31.6-35.5); Mean Corpuscular Hemoglobin 22.6 pg (28.0-33.3); Monocytes # 0.3 K/mcL (0.0-1.3); Monocytes % 8.6 %; Neutrophils # 2.7 K/mcL (1.6-8.9); Platelet Count 181 K/mcL (140-400); Red Blood Count 3.81 M/mcL (4.19-5.50); Red Cell Distribution Width 19.9 % (11.5-14.5); Segmented Neutrophils % 75.9 %; White Blood Count 3.5 K/mcL (4.3-11.1)
[2020-05-06] MEDS: tiZANidine 4 MG TABLET PO PRN ×2 (08:05→23:06)
[2020-05-06 08:36] LABS: Alanine Aminotransferase 5 Units/L (7-52); Albumin 2.6 g/dL (3.5-5.7); Albumin/Globulin Ratio 0.8 (1.1-2.2); Alkaline Phosphatase 93 Units/L (34-104); Aspartate Amino Transferase 14 Units/L (13-39); BUN/Creatinine Ratio 10 (6-26); Bilirubin,Direct 0.3 mg/dL (0.0-0.2); Bilirubin,Indirect 0.7 mg/dL (0.0-1.0); Blood Urea Nitrogen 6 mg/dL (8-23); Carbon Dioxide 24 mEq/L (23-29); Chloride 108 mEq/L (98-107); Globulin 3.1 g/dL (2.4-3.5); Glucose 102 mg/dL (70-105); Magnesium 1.8 mg/dL (1.6-2.6); Osmolality,Calculated 282 (280-300); Potassium 3.3 mEq/L (3.5-5.1); Sodium 137 mEq/L (136-145); Total Protein 5.7 g/dL (6.4-8.9); eGFR For African Americans > 60 (> 60); eGFR For Non-African Americans > 60 (> 60)
[2020-05-06 08:41] LABS: Anisocytosis 1+ (Not Present); Poikilocytosis 1+ (Not Present)
[2020-05-06 08:42] LABS: Hypochromasia Present (Not Present); Platelet Estimate Normal (Normal)
[2020-05-06] MEDS: Folic Acid 1 MG TABLET PO SCH (09:03)
[2020-05-06] MEDS: Aspirin Enteric Coated 81 MG Tablet PO SCH (09:03)
[2020-05-06] MEDS ORDERED: *HR* Propofol 500 MG/50 ML BOTTLE IVP ONE (11:02)
[2020-05-06] MEDS ORDERED: *HR* Phenylephrine 10 MG/ML VIAL IVC ONE (11:02)
[2020-05-06] MEDS ORDERED: Lidocaine -MPF 2% 5 ML VIAL SQ ONE (11:02)
[2020-05-06] MEDS ORDERED: *HR* Phytonadione 10 MG/ML AMPUL SQ ONE (15:00)
[2020-05-06] MEDS ORDERED: *HR* Heparin 5,000 UNIT/ML VIAL IVP PRN ×2 (17:28)
[2020-05-06] MEDS ORDERED: Heparin 25,000UNIT/250ML 1/2NS 25,000 UNIT/250 ML IV.SOLN IVC SCH ×2 (17:30)
[2020-05-06] MEDS ORDERED: cefTRIAXone 1,000 MG in 0.9 % Sodium Chloride Mini Bag 100 ML IVPB SCH (18:00)
[2020-05-06] MEDS: atenoloL 50 MG TABLET PO SCH (18:28)
[2020-05-06] MEDS: traZODone 50 MG TABLET PO SCH (19:29)
[2020-05-06 21:17] LABS: Hematocrit 28.9 % (37.5-50.1); Hemoglobin 8.5 g/dL (12.9-16.9)
[2020-05-06 22:58] LABS: Lambda Qnt Free Light Chains 38.62 mg/L (5.71-26.30)
[2020-05-07 05:48] LABS: INR 1.9; Prothrombin Time 21.4 Seconds (9.4-12.1)
[2020-05-07 05:50] LABS: Immature Granulocytes % 0.3 % (0-4)
[2020-05-07] MEDS: Pantoprazole 40 MG VIAL IVP SCH (05:51)
[2020-05-07 05:52] LABS: Basophils % 0.6 %; Eosinophils # 0.2 K/mcL (0.0-0.6); Lymphocytes # 0.4 K/mcL (0.6-4.6); Lymphocytes % 10.6 %; Mean Corpuscular HGB Conc 28.6 g/dL (31.6-35.5); Mean Corpuscular Hemoglobin 22.7 pg (28.0-33.3); Mean Corpuscular Volume 79.3 fL (83.0-100.0); Mean Platelet Volume 8.8 fL (9.4-12.4); Monocytes # 0.3 K/mcL (0.0-1.3); Monocytes % 8.7 %; Neutrophils # 2.7 K/mcL (1.6-8.9); Platelet Count 175 K/mcL (140-400); Red Blood Count 3.53 M/mcL (4.19-5.50); Red Cell Distribution Width 20.1 % (11.5-14.5); Segmented Neutrophils % 74.8 %; White Blood Count 3.6 K/mcL (4.3-11.1)
[2020-05-07 05:57] LABS: Alanine Aminotransferase 4 Units/L (7-52); Albumin 2.5 g/dL (3.5-5.7); Albumin/Globulin Ratio 0.8 (1.1-2.2); Alkaline Phosphatase 86 Units/L (34-104); Aspartate Amino Transferase 13 Units/L (13-39); BUN/Creatinine Ratio 8 (6-26); Bilirubin,Total 0.9 mg/dL (0.3-1.0); Blood Urea Nitrogen 5 mg/dL (8-23); Carbon Dioxide 22 mEq/L (23-29); Chloride 109 mEq/L (98-107); Glucose 90 mg/dL (70-105); Magnesium 1.8 mg/dL (1.6-2.6); Osmolality,Calculated 281 (280-300); Potassium 3.4 mEq/L (3.5-5.1); Sodium 137 mEq/L (136-145); Total Protein 5.5 g/dL (6.4-8.9); eGFR For African Americans > 60 (> 60); eGFR For Non-African Americans > 60 (> 60)
[2020-05-07 06:55] LABS: Anisocytosis 1+ (Not Present); Hypochromasia Present (Not Present); Platelet Estimate Normal (Normal); Poikilocytosis 1+ (Not Present)
[2020-05-07 06:56] LABS: Microcytosis Present (Not Present)
[2020-05-07] MEDS ORDERED: *HR* Propofol 200 MG/20 ML VIAL IVP ONE (07:02)
[2020-05-07] MEDS ORDERED: *HR* FentaNYL (PF) 100 MCG/2 ML VIAL ONE ×3 (07:03→09:59)
[2020-05-07] MEDS ORDERED: Lidocaine -MPF 2% 2 ML VIAL ONE (07:03)
[2020-05-07] MEDS ORDERED: Dexamethasone 4 MG/ML VIAL ONE (07:03)
[2020-05-07] MEDS ORDERED: Lidocaine -MPF 4% 5 ML AMPUL ONE (07:03)
[2020-05-07] MEDS ORDERED: *HR* Rocuronium Bromide 50 MG/5 ML VIAL ONE (07:03)
[2020-05-07] MEDS ORDERED: Ondansetron 4 MG/2 ML VIAL ONE (07:03)
[2020-05-07] MEDS ORDERED: Ondansetron 4 MG/2 ML VIAL IVP PRN (07:07)
[2020-05-07] MEDS ORDERED: *HR* Metoprolol 5 MG/5 ML VIAL IVP PRN ×2 (07:07→16:37)
[2020-05-07] MEDS ORDERED: CefOXitin 1,000 MG VIAL ONE (07:47)
[2020-05-07] MEDS ORDERED: Heparin 1,000 UNITS/500 mL 500 ML ONE (07:47)
[2020-05-07] MEDS ORDERED: Morphine Sulfate 2 MG/ML SYRINGE IVP PRN (07:50)
[2020-05-07] MEDS ORDERED: *HR* FentaNYL (PF) 100 MCG/2 ML VIAL IVP PRN (07:50)
[2020-05-07] MEDS ORDERED: CefOXitin 2,000 MG VIAL ONE (08:15)
[2020-05-07] MEDS ORDERED: cefOXitin 2,000 MG in 0.9 % Sodium Chloride Mini Bag 100 ML IVPB ONE (08:16)
[2020-05-07] MEDS ORDERED: Furosemide 20 MG/2 ML VIAL IVP SCH (09:00)
[2020-05-07] MEDS ORDERED: *HR* Metoprolol 5 MG/5 ML VIAL IVP ONE (09:08)
[2020-05-07] MEDS ORDERED: *HR* PHENYLEPHRINE 1,000 MCG/10 ML SYRINGE IVP ONE (09:56)
[2020-05-07 10:23] LABS: ABG Base Excess -5 mEq/L (-2 to 3); ABG Chloride 107 mEq/L (98-107); ABG Glucose 122 mg/dL (60-95); ABG HCO3 21 mEq/L (21-27); ABG Ionized Calcium 1.04 mmol/L (1.15-1.35); ABG Oxygen Saturation 99 % (95-98); ABG PCO2 42 mmHg (35-45); ABG PH 7.32 pH Units (7.32-7.45); ABG PO2 131 mmHg (85-104); ABG TCO2 23 mEq/L (20-26)
[2020-05-07 10:34] LABS: Kappa Qnt Free Light Chains 73.7 mg/L (3.30-19.40)
[2020-05-07] MEDS: *HR* HYDROmorphone PF 0.5 MG/0.5 ML SYRINGE IVP PRN ×4 (11:36→12:00)
[2020-05-07] MEDS ORDERED: Acetaminophen IV 1,000 MG/100 ML INFUS..BTL ONE (12:31)
[2020-05-07] MEDS: cefTRIAXone 2,000 MG in Water for inj. (sterile) 20 ML IVP SCH (14:51)
[2020-05-07] MEDS ORDERED: Perflutren Lipid Microsphere 1.3 ML in 0.9 % Sodium Chloride 8.7 ML IVP PRN (16:42)
[2020-05-07 17:57] LABS: Hematocrit 29.8 % (37.5-50.1); Hemoglobin 8.3 g/dL (12.9-16.9)
[2020-05-07] MEDS ORDERED: cefTRIAXone 1,000 MG in 0.9 % Sodium Chloride Mini Bag 100 ML IVPB SCH (18:00)
[2020-05-07] MEDS ORDERED: *HR* Heparin 5,000 UNIT/ML VIAL IVP PRN ×2 (18:10)
[2020-05-07] MEDS: Morphine Sulfate 2 MG/ML SYRINGE IVP PRN (18:26)
[2020-05-07] MEDS: Heparin 25,000UNIT/250ML 1/2NS 25,000 UNIT/250 ML IV.SOLN IVC SCH (18:27)
[2020-05-07 18:50] LABS: Mean Platelet Volume 8.7 fL (9.4-12.4)
[2020-05-07 18:51] LABS: Hematocrit 29.1 % (37.5-50.1); Hemoglobin 8.3 g/dL (12.9-16.9); Mean Corpuscular HGB Conc 28.5 g/dL (31.6-35.5); Mean Corpuscular Hemoglobin 22.7 pg (28.0-33.3); Mean Corpuscular Volume 79.7 fL (83.0-100.0); Platelet Count 204 K/mcL (140-400); Red Blood Count 3.65 M/mcL (4.19-5.50); Red Cell Distribution Width 19.7 % (11.5-14.5)
[2020-05-07 21:09] LABS: Heparin anti-factor XA UFH < 0.04 IU/mL (0.30-0.70); INR 1.4; Prothrombin Time 15.9 Seconds (9.4-12.1)
[2020-05-08] MEDS: Morphine Sulfate 2 MG/ML SYRINGE IVP PRN (01:59)
[2020-05-08] MEDS: Heparin 25,000UNIT/250ML 1/2NS 25,000 UNIT/250 ML IV.SOLN IVC SCH ×2 (02:06→21:19)
[2020-05-08 03:48] LABS: INR 1.4; Prothrombin Time 16.2 Seconds (9.4-12.1)
[2020-05-08 03:59] LABS: Magnesium 1.8 mg/dL (1.6-2.6); Phosphorous 2.3 mg/dL (2.7-4.5)
[2020-05-08 04:08] LABS: Alanine Aminotransferase 7 Units/L (7-52); Albumin 2.9 g/dL (3.5-5.7); Albumin/Globulin Ratio 0.9 (1.1-2.2); Alkaline Phosphatase 91 Units/L (34-104); Aspartate Amino Transferase 19 Units/L (13-39); BUN/Creatinine Ratio 9 (6-26); Bilirubin,Total 0.8 mg/dL (0.3-1.0); Blood Urea Nitrogen 7 mg/dL (8-23); Calcium 8.4 mg/dL (8.6-10.3); Carbon Dioxide 22 mEq/L (23-29); Chloride 105 mEq/L (98-107); Globulin 3.3 g/dL (2.4-3.5); Glucose 166 mg/dL (70-105); Osmolality,Calculated 284 (280-300); Potassium 4.3 mEq/L (3.5-5.1); Sodium 136 mEq/L (136-145); Total Protein 6.2 g/dL (6.4-8.9); eGFR For African Americans > 60 (> 60); eGFR For Non-African Americans > 60 (> 60)
[2020-05-08 06:06] LABS: White Blood Count 6.7 K/mcL (4.3-11.1)
[2020-05-08 06:07] LABS: Basophils % 0.1 %; Hematocrit 29.7 % (37.5-50.1); Hemoglobin 8.2 g/dL (12.9-16.9); Immature Granulocytes % 0.3 % (0-4); Lymphocytes # 0.3 K/mcL (0.6-4.6); Lymphocytes % 4.5 %; Mean Corpuscular HGB Conc 27.6 g/dL (31.6-35.5); Mean Corpuscular Hemoglobin 21.8 pg (28.0-33.3); Mean Platelet Volume 9.2 fL (9.4-12.4); Monocytes # 0.4 K/mcL (0.0-1.3); Monocytes % 6.1 %; Platelet Count 261 K/mcL (140-400); Red Blood Count 3.76 M/mcL (4.19-5.50); Red Cell Distribution Width 19.8 % (11.5-14.5)
[2020-05-08 07:00] LABS: Hypochromasia Present (Not Present); Poikilocytosis 1+ (Not Present)
[2020-05-08 07:01] LABS: Anisocytosis 1+ (Not Present)
[2020-05-08 07:05] LABS: Platelet Estimate Normal (Normal)
[2020-05-08] MEDS ORDERED: *HR* HYDROmorphone 20 MG/20 ML PCA IVC PRN (08:48)
[2020-05-08] MEDS ORDERED: *HR* LORazepam 2 MG/ML VIAL IVP ONE (09:10)
[2020-05-08] MEDS ORDERED: *HR* LORazepam 2 MG/ML VIAL IVP STA (09:12)
[2020-05-08] MEDS ORDERED: *HR* Metoprolol 5 MG/5 ML VIAL IVP PRN (11:35)
[2020-05-08] MEDS: *HR* Metoprolol 5 MG/5 ML VIAL IVP SCH ×2 (14:27→17:18)
[2020-05-08] MEDS: cefTRIAXone 2,000 MG in Water for inj. (sterile) 20 ML IVP SCH (16:13)
[2020-05-08] MEDS ORDERED: *HR* Metoprolol 5 MG/5 ML VIAL IVP ONE (19:15)
[2020-05-08] MEDS: DilTIAZem 50 MG in 0.9 % Sodium Chloride 40 ML IVC SCH (21:53)
[2020-05-09] MEDS: DilTIAZem 50 MG in 0.9 % Sodium Chloride 40 ML IVC SCH ×8 (02:20→23:07)
[2020-05-09] MEDS ORDERED: Ringers Solution, Lactated 500 ML IVC ONE (03:14)
[2020-05-09 07:37] LABS: INR 1.3; Prothrombin Time 14.9 Seconds (9.4-12.1)
[2020-05-09 07:51] LABS: Magnesium 2.1 mg/dL (1.6-2.6); Phosphorous 3.4 mg/dL (2.7-4.5)
[2020-05-09 07:52] LABS: BUN/Creatinine Ratio 12 (6-26); Blood Urea Nitrogen 16 mg/dL (8-23); Calcium 8.4 mg/dL (8.6-10.3); Carbon Dioxide 23 mEq/L (23-29); Chloride 106 mEq/L (98-107); Glucose 192 mg/dL (70-105); Osmolality,Calculated 292 (280-300); Sodium 138 mEq/L (136-145); eGFR For African Americans > 60 (> 60); eGFR For Non-African Americans 52 (> 60)
[2020-05-09 08:27] LABS: Basophils % 0.1 %
[2020-05-09 08:28] LABS: Hematocrit 20.2 % (37.5-50.1); Immature Granulocytes % 0.5 % (0-4); Lymphocytes # 0.8 K/mcL (0.6-4.6); Lymphocytes % 5.5 %; Mean Corpuscular HGB Conc 28.7 g/dL (31.6-35.5); Mean Corpuscular Hemoglobin 22.7 pg (28.0-33.3); Mean Corpuscular Volume 78.9 fL (83.0-100.0); Mean Platelet Volume 9.2 fL (9.4-12.4); Monocytes # 1.7 K/mcL (0.0-1.3); Platelet Count 350 K/mcL (140-400); Red Blood Count 2.56 M/mcL (4.19-5.50); Red Cell Distribution Width 20.6 % (11.5-14.5); Segmented Neutrophils % 82.9 %
[2020-05-09 08:31] LABS: Neutrophils # 12.4 K/mcL (1.6-8.9)
[2020-05-09 08:33] LABS: Hemoglobin 5.8 g/dL (12.9-16.9)
[2020-05-09] MEDS ORDERED: 0.9 % Sodium Chloride 1,000 ML IVC SCH (11:00)
[2020-05-09] MEDS: Morphine Sulfate 2 MG/ML SYRINGE IVP PRN ×3 (11:55→23:44)
[2020-05-09 12:12] LABS: Urine Collection Volume RANDOM mL
[2020-05-09] MEDS ORDERED: Isovue-370 500 ML BOTTLE IVP ONE (14:22)
[2020-05-09] MEDS: 0.9 % Sodium Chloride 250 ML IVC SCH ×2 (14:27→23:13)
[2020-05-09 15:17] LABS: Bilirubin,Urine Negative (Negative); Blood,Urine Trace (Negative); Clarity,Urine Turbid (Clear); Color,Urine Yellow (Yellow); Glucose,Urine (UA) Normal (Normal); Hyaline Casts,Urine Few per lpf (None Seen); Ketones,Urine 20 mg/dL (Negative); Leukocyte Esterase,Urine Negative (Negative); Mucus,Urine Few per lpf (None-Few); Nitrite,Urine Negative (Negative); PH,Urine 5.5 pH Units (5.0-8.0); Protein,Urine 50 mg/dL (Neg-Trace); Specific Gravity,Urine 1.022 (1.010-1.025); Sperm,Urine Present (None Seen); Squamous Epithelial Cell,Urine Few per hpf (None-Few); Urobilinogen,Urine Normal (Normal)
[2020-05-09 15:38] LABS: Hematocrit 19.8 % (37.5-50.1)
[2020-05-09 15:40] LABS: Hemoglobin 5.7 g/dL (12.9-16.9)
[2020-05-09] MEDS: cefTRIAXone 2,000 MG in Water for inj. (sterile) 20 ML IVP SCH (17:38)
[2020-05-09] MEDS: Piperacillin/Tazobactam 3.375 GM in 0.9 % Sodium Chloride Mini Bag 100 ML IVPB SCH ×2 (18:46→23:43)
[2020-05-09 19:45] LABS: Basophils % 0.1 %; Eosinophils % 0.1 %; Hematocrit 25.7 % (37.5-50.1); Immature Granulocytes % 0.9 % (0-4); Lymphocytes # 0.4 K/mcL (0.6-4.6); Lymphocytes % 4.6 %; Mean Corpuscular HGB Conc 29.2 g/dL (31.6-35.5); Mean Corpuscular Hemoglobin 24.5 pg (28.0-33.3); Mean Platelet Volume 8.4 fL (9.4-12.4); Monocytes # 0.9 K/mcL (0.0-1.3); Monocytes % 9.8 %; Neutrophils # 7.5 K/mcL (1.6-8.9); Platelet Count 227 K/mcL (140-400); Red Blood Count 3.06 M/mcL (4.19-5.50); Red Cell Distribution Width 19.8 % (11.5-14.5); Segmented Neutrophils % 84.5 %; White Blood Count 8.9 K/mcL (4.3-11.1)
[2020-05-09 19:53] LABS: Hemoglobin 7.5 g/dL (12.9-16.9)
[2020-05-10 00:45] LABS: Hematocrit 27.2 % (37.5-50.1); Hemoglobin 8.1 g/dL (12.9-16.9)
[2020-05-10] MEDS ORDERED: *HR* Heparin 5,000 UNIT/ML VIAL IVP ONE (01:45)
[2020-05-10] MEDS ORDERED: *HR* Heparin 5,000 UNIT/ML VIAL IVP PRN ×2 (01:45)
[2020-05-10] MEDS: DilTIAZem 50 MG in 0.9 % Sodium Chloride 40 ML IVC SCH ×5 (02:19→15:08)
[2020-05-10 03:48] LABS: Basophils % 0.1 %; Eosinophils % 0.5 %; Hematocrit 27.8 % (37.5-50.1); Hemoglobin 8.2 g/dL (12.9-16.9); Immature Granulocytes % 0.7 % (0-4); Lymphocytes # 0.4 K/mcL (0.6-4.6); Lymphocytes % 4.8 %; Mean Corpuscular HGB Conc 29.5 g/dL (31.6-35.5); Mean Corpuscular Hemoglobin 25.5 pg (28.0-33.3); Mean Corpuscular Volume 86.6 fL (83.0-100.0); Mean Platelet Volume 8.4 fL (9.4-12.4); Monocytes # 0.8 K/mcL (0.0-1.3); Monocytes % 8.8 %; Neutrophils # 7.5 K/mcL (1.6-8.9); Nucleated Red Blood Cells 0.2 /100 WBC (0); Platelet Count 200 K/mcL (140-400); Red Blood Count 3.21 M/mcL (4.19-5.50); Red Cell Distribution Width 18.8 % (11.5-14.5); Segmented Neutrophils % 85.1 %; White Blood Count 8.8 K/mcL (4.3-11.1)
[2020-05-10 04:02] LABS: INR 1.1
[2020-05-10 04:09] LABS: BUN/Creatinine Ratio 13 (6-26); Blood Urea Nitrogen 15 mg/dL (8-23); Calcium 8.1 mg/dL (8.6-10.3); Carbon Dioxide 26 mEq/L (23-29); Chloride 111 mEq/L (98-107); Glucose 173 mg/dL (70-105); Magnesium 2.1 mg/dL (1.6-2.6); Osmolality,Calculated 303 (280-300); Phosphorous 1.7 mg/dL (2.7-4.5); Potassium 3.5 mEq/L (3.5-5.1); Sodium 144 mEq/L (136-145); eGFR For African Americans > 60 (> 60); eGFR For Non-African Americans > 60 (> 60)
[2020-05-10] MEDS ORDERED: Potassium Phosphate 44 MEQ in 0.9 % Sodium Chloride 250 ML IVPB ONE (04:45)
[2020-05-10 04:53] LABS: VBG Ionized Calcium 1.04 mmol/L (1.15-1.35)
[2020-05-10] MEDS: Morphine Sulfate 2 MG/ML SYRINGE IVP PRN (05:19)
[2020-05-10] MEDS: Heparin 25,000UNIT/250ML 1/2NS 25,000 UNIT/250 ML IV.SOLN IVC SCH (05:20)
[2020-05-10] MEDS: Calcium Gluconate 1gm/50mL 1 GM/50 ML BAG IVPB SCH ×2 (06:34→07:32)
[2020-05-10] MEDS: Piperacillin/Tazobactam 3.375 GM in 0.9 % Sodium Chloride Mini Bag 100 ML IVPB SCH (08:11)
[2020-05-10 08:36] LABS: Hematocrit 27.5 % (37.5-50.1); Hemoglobin 8.1 g/dL (12.9-16.9)
[2020-05-10 14:33] LABS: Hematocrit 28.6 % (37.5-50.1); Hemoglobin 8.5 g/dL (12.9-16.9)
[2020-05-10] MEDS: cefTRIAXone 2,000 MG in Water for inj. (sterile) 20 ML IVP SCH (15:06)
[2020-05-10] MEDS: Acetaminophen IV 1,000 MG/100 ML INFUS..BTL IVPB SCH ×3 (16:23→23:09)
[2020-05-10 17:00] LABS: VBG Ionized Calcium 1.14 mmol/L (1.15-1.35)
[2020-05-10 20:04] LABS: Hematocrit 26.6 % (37.5-50.1); Hemoglobin 7.9 g/dL (12.9-16.9)
[2020-05-11] MEDS: Heparin 25,000UNIT/250ML 1/2NS 25,000 UNIT/250 ML IV.SOLN IVC SCH ×3 (00:24→20:41)
[2020-05-11 04:01] LABS: Basophils % 0.3 %; Eosinophils # 0.2 K/mcL (0.0-0.6); Eosinophils % 2.8 %; Hematocrit 26.4 % (37.5-50.1); Hemoglobin 7.9 g/dL (12.9-16.9); Immature Granulocytes % 0.8 % (0-4); Lymphocytes # 0.5 K/mcL (0.6-4.6); Lymphocytes % 7.9 %; Mean Corpuscular HGB Conc 29.9 g/dL (31.6-35.5); Mean Corpuscular Hemoglobin 26.1 pg (28.0-33.3); Mean Corpuscular Volume 87.1 fL (83.0-100.0); Mean Platelet Volume 8.6 fL (9.4-12.4); Monocytes # 0.5 K/mcL (0.0-1.3); Monocytes % 8.4 %; Neutrophils # 4.9 K/mcL (1.6-8.9); Platelet Count 174 K/mcL (140-400); Red Blood Count 3.03 M/mcL (4.19-5.50); Segmented Neutrophils % 79.8 %; White Blood Count 6.2 K/mcL (4.3-11.1)
[2020-05-11 04:06] LABS: INR 1.2; Prothrombin Time 13.9 Seconds (9.4-12.1)
[2020-05-11 04:21] LABS: BUN/Creatinine Ratio 13 (6-26); Blood Urea Nitrogen 12 mg/dL (8-23); Calcium 8.1 mg/dL (8.6-10.3); Carbon Dioxide 27 mEq/L (23-29); Chloride 112 mEq/L (98-107); Glucose 122 mg/dL (70-105); Magnesium 2.1 mg/dL (1.6-2.6); Osmolality,Calculated 303 (280-300); Phosphorous 2.6 mg/dL (2.7-4.5); Potassium 3.4 mEq/L (3.5-5.1); Sodium 146 mEq/L (136-145); eGFR For African Americans > 60 (> 60); eGFR For Non-African Americans > 60 (> 60)
[2020-05-11] MEDS: Acetaminophen IV 1,000 MG/100 ML INFUS..BTL IVPB SCH (05:27)
[2020-05-11] MEDS ORDERED: *HR* Heparin 5,000 UNIT/ML VIAL IVP PRN ×2 (11:06)
[2020-05-11] MEDS ORDERED: Morphine Sulfate 2 MG/ML SYRINGE IVP PRN (11:06)
[2020-05-11] MEDS ORDERED: Acetaminophen 325 MG TABLET PO PRN (11:06)
[2020-05-11 16:13] LABS: Hematocrit 26.3 % (37.5-50.1)
[2020-05-11] MEDS: cefTRIAXone 2,000 MG in Water for inj. (sterile) 20 ML IVP SCH (16:31)
[2020-05-11] MEDS ORDERED: Warfarin perPT PO PRN (18:00)
[2020-05-11] MEDS ORDERED: *HR* Warfarin 5 MG TABLET PO ONE (18:00)
[2020-05-11] MEDS ORDERED: Mag Hydrox/Al Hydrox/Simeth 30 ML UDC PO PRN (23:39)
[2020-05-12 01:35] LABS: Hematocrit 28.9 % (37.5-50.1); Hemoglobin 8.5 g/dL (12.9-16.9)
[2020-05-12 05:02] LABS: Heparin anti-factor XA UFH 0.59 IU/mL (0.30-0.70); INR 1.1; Prothrombin Time 12.9 Seconds (9.4-12.1)
[2020-05-12 05:04] LABS: Basophils % 0.3 %; Eosinophils # 0.3 K/mcL (0.0-0.6); Eosinophils % 3.7 %; Hematocrit 30.2 % (37.5-50.1); Hemoglobin 9.1 g/dL (12.9-16.9); Immature Granulocytes % 0.7 % (0-4); Lymphocytes # 0.6 K/mcL (0.6-4.6); Lymphocytes % 6.4 %; Mean Corpuscular HGB Conc 30.1 g/dL (31.6-35.5); Mean Corpuscular Volume 86.3 fL (83.0-100.0); Mean Platelet Volume 8.6 fL (9.4-12.4); Monocytes # 0.7 K/mcL (0.0-1.3); Monocytes % 7.6 %; Neutrophils # 7.1 K/mcL (1.6-8.9); Nucleated Red Blood Cells 0.2 /100 WBC (0); Platelet Count 206 K/mcL (140-400); Red Cell Distribution Width 19.3 % (11.5-14.5); Segmented Neutrophils % 81.3 %; White Blood Count 8.8 K/mcL (4.3-11.1)
[2020-05-12 05:24] LABS: BUN/Creatinine Ratio 17 (6-26); Blood Urea Nitrogen 13 mg/dL (8-23); Calcium 8.1 mg/dL (8.6-10.3); Carbon Dioxide 27 mEq/L (23-29); Chloride 106 mEq/L (98-107); Glucose 119 mg/dL (70-105); Magnesium 1.8 mg/dL (1.6-2.6); Osmolality,Calculated 289 (280-300); Phosphorous 2.1 mg/dL (2.7-4.5); Potassium 3.3 mEq/L (3.5-5.1); Sodium 139 mEq/L (136-145); eGFR For African Americans > 60 (> 60); eGFR For Non-African Americans > 60 (> 60)
[2020-05-12] MEDS: Heparin 25,000UNIT/250ML 1/2NS 25,000 UNIT/250 ML IV.SOLN IVC SCH ×2 (05:35→13:56)
[2020-05-12] MEDS: cefTRIAXone 2,000 MG in Water for inj. (sterile) 20 ML IVP SCH (15:05)
[2020-05-12 16:24] LABS: Hemoglobin 8.8 g/dL (12.9-16.9)
[2020-05-12] MEDS ORDERED: *HR* Warfarin 5 MG TABLET PO ONE (18:00)
[2020-05-12 19:56] LABS: Bilirubin,Urine Negative (Negative); Blood,Urine Large (Negative); Calcium Oxalate Crystals,Urine Present; Clarity,Urine Clear (Clear); Color,Urine Light-Yellow (Yellow); Glucose,Urine (UA) Normal (Normal); Hyaline Casts,Urine Few per lpf (None Seen); Ketones,Urine 10 mg/dL (Negative); Leukocyte Esterase,Urine Trace (Negative); Mucus,Urine Few per lpf (None-Few); Nitrite,Urine Negative (Negative); PH,Urine 6.5 pH Units (5.0-8.0); Protein,Urine 30 mg/dL (Neg-Trace); RBC,Urine TNTC per hpf (0-3); Specific Gravity,Urine 1.013 (1.010-1.025); Squamous Epithelial Cell,Urine Few per hpf (None-Few); Urobilinogen,Urine Normal (Normal)
[2020-05-13] MEDS: Heparin 25,000UNIT/250ML 1/2NS 25,000 UNIT/250 ML IV.SOLN IVC SCH (05:38)
[2020-05-13 05:55] LABS: Basophils % 0.5 %; Eosinophils # 0.3 K/mcL (0.0-0.6); Eosinophils % 4.4 %; Hematocrit 28.7 % (37.5-50.1); Hemoglobin 8.6 g/dL (12.9-16.9); Immature Granulocytes % 0.8 % (0-4); Lymphocytes # 0.5 K/mcL (0.6-4.6); Lymphocytes % 7.4 %; Mean Corpuscular Hemoglobin 25.7 pg (28.0-33.3); Mean Corpuscular Volume 85.7 fL (83.0-100.0); Mean Platelet Volume 9.1 fL (9.4-12.4); Monocytes # 0.5 K/mcL (0.0-1.3); Monocytes % 7.8 %; Neutrophils # 5.3 K/mcL (1.6-8.9); Platelet Count 164 K/mcL (140-400); Red Blood Count 3.35 M/mcL (4.19-5.50); Red Cell Distribution Width 19.6 % (11.5-14.5); Segmented Neutrophils % 79.1 %; White Blood Count 6.6 K/mcL (4.3-11.1)
[2020-05-13 06:05] LABS: INR 1.3; Prothrombin Time 14.7 Seconds (9.4-12.1)
[2020-05-13 06:16] LABS: Alanine Aminotransferase 7 Units/L (7-52); Albumin 2.4 g/dL (3.5-5.7); Albumin/Globulin Ratio 0.8 (1.1-2.2); Alkaline Phosphatase 72 Units/L (34-104); Aspartate Amino Transferase 15 Units/L (13-39); BUN/Creatinine Ratio 12 (6-26); Bilirubin,Total 0.9 mg/dL (0.3-1.0); Blood Urea Nitrogen 8 mg/dL (8-23); Calcium 7.8 mg/dL (8.6-10.3); Carbon Dioxide 28 mEq/L (23-29); Chloride 106 mEq/L (98-107); Globulin 2.9 g/dL (2.4-3.5); Glucose 102 mg/dL (70-105); Osmolality,Calculated 285 (280-300); Potassium 3.6 mEq/L (3.5-5.1); Sodium 138 mEq/L (136-145); Total Protein 5.3 g/dL (6.4-8.9); eGFR For African Americans > 60 (> 60); eGFR For Non-African Americans > 60 (> 60)
[2020-05-13] MEDS ORDERED: Lidocaine Viscous Oral Soln 15 ML SOLUTION MM PRN (11:19)
[2020-05-13] MEDS ORDERED: 0.9 % Sodium Chloride 500 ML IVC ONE (11:19)
[2020-05-13] MEDS ORDERED: *HR* Midazolam HCl 5 MG/5 ML VIAL IVP PRN (11:19)
[2020-05-13] MEDS ORDERED: *HR* Midazolam HCl 5 MG/5 ML VIAL IVP ONE ×2 (11:53→11:54)
[2020-05-13] MEDS: *HR* FentaNYL (PF) 100 MCG/2 ML VIAL IVP PRN ×2 (12:05→12:10)
[2020-05-13 14:46] LABS: Hematocrit 29.7 % (37.5-50.1); Hemoglobin 8.8 g/dL (12.9-16.9)
[2020-05-13] MEDS: cefTRIAXone 2,000 MG in Water for inj. (sterile) 20 ML IVP SCH (16:14)
[2020-05-13 16:20] VITALS: BP 146/80
[2020-05-13] MEDS ORDERED: *HR* Warfarin 5 MG TABLET PO ONE (18:00)
== END 2020-05-13 17:00 | disposition short-term general hospital (02) | DRG 329 ==
LOC: 2NNU 09:56 → EMEROOARM 09:56 → SUATTDRO 12:17 → 2NNU 14:17 → SUATTDRO 05-04 11:43 → ICNU 05-09 17:15 → 2NNU 05-12 00:22
PROVIDERS: ADMIT Internal Medicine; ATTEND Family Medicine
PROC: ENDOCBX (2020-05-06 12:10)